=== PATIENT | male | born 1955 | race Caucasian/White ===

== ENCOUNTER 2017-11-06 15:03 | Emergency (ER) | payer BC, SELFPAY ==
[2017-11-06 15:04] VITALS: BP 153/112; PULSE 72; RESP 22; TEMP 36.4; O2SAT 100; BMI 22.2
--- NOTE | 2017-11-06 15:16 | CT_ITS ---
STUDY: CT ABDOMEN AND PELVIS WITHOUT CONTRAST REASON FOR EXAM: Male, 61 years old. Left lower quadrant pain, diaphoretic and hematuria. RADIATION DOSAGE (If Supplied By Facility): CTDIvol = ( 6.52 ) mGy, DLP = ( 293.36 ) mGycm TECHNIQUE: Transaxial images were obtained from the dome of the diaphragm to the symphysis pubis with oral contrast, and without intravenous contrast. Sagittal and coronal images were reconstructed. Individualized dose optimization techniques were used for this CT. COMPARISON: None. FINDINGS: The visualized lung bases are unremarkable. The visualized portions of the heart are within normal limits. Normal liver. Normal gallbladder and extrahepatic biliary system. Normal spleen. Normal pancreas. Normal bilateral adrenal glands. Normal right kidney. Mild hydronephrosis of the left kidney and a dilated ureter with a 3 mm stone at the left ureterovesicular junction. No additional left renal stones. Normal visualized stomach. Normal small intestine. Normal colon. The appendix is visualized and appears normal. Minimal calcified plaque of the aorta. Normal inferior vena cava. Normal retroperitoneum. Distended urinary bladder. Minimal fatty inguinal hernias. Normal osseous structures. CT/Abdomen/Pelvis without Cont IMPRESSION: Mild hydronephrosis of the left kidney and a dilated ureter secondary to a 3 mm stone at the left ureterovesicular junction. No additional left renal stones. Normal right kidney without hydronephrosis or stones. Distended urinary bladder. No additional acute abdominal or pelvic findings. Electronically Signed: Negar Mitchell MD at 16:35 EST , Service support ,
--- NOTE | 2017-11-06 15:25 | ED.VISSUMM ---
- ER Visit Summary Date of Service: 11/06/17 Chief Complaint: Abdominal pain History of Present Illness: The patient is a 61 M who states that this morning he began to have an onset of left lower quadrant abdominal pain. He states that it feels like a really bad punched to the stomach. It is nonradiating. No vomiting. He had a small bowel movement this morning without blood. He denies any urinary symptoms. No history of kidney stones. He had a colonoscopy 2 years ago which she states was fine. He denies history of diverticulosis. Surgical history includes brain tumor resection. He is on antiepileptic drugs. No fevers. He has never had this pain before. Physical Examination: Afebrile vital signs are stable. Noted hypertension at 153/112 in triage. Gen: Well-nourished well-developed patient appears in pain Head: Normocephalic atraumatic Eyes: Perrl EOMI ENT: TMs clear no rhinorrhea moist mucous membranes Neck: Supple no lymphadenopathy no JVD nontender CVS: Regular rate rhythm no murmurs normal S1-S2 Respiratory: No distress clear to auscultation bilaterally chest nontender Abdomen: Abdomen is firm with guarding rebound and tenderness to palpation in the left lower quadrant. Nondistended normal bowel sounds no masses Back: Nontender Extremity: Nontender no edema Skin: Normal color no rash Neuro: alert orientated ?3 CN II-XII intact normal strength sensation reflexes gait cerebellar Psych: Normal affect normal mood Test Results: CBC showed a white count 13.6. Chemistries with a creatinine 1.16. Urinalysis showed 10-25 red blood cells. Lactic acid 2.9. CT without contrast demonstrates a 3 mm distal ureteral stone with mild hydronephroureter. Emergency Department Course and Treatment: IV was established and the patient received IV fluids, Dilaudid, and Zofran. I believe the patient's symptoms are related to this distal ureteral stone. His lactic acid is elevated I believe because he has been holding himself for several hours extremely tense and shaking. Lactic acid is most likely a muscle byproduct from this. He is overall improved. He will be discharged home with follow-up with his doctor return if worsening. Impression: 1. Left kidney stone with colic This note was generated with [employer] software. It may contain incorrect words, spelling, and punctuation that were not noted in review of the chart prior to signing ED Disposition - Plan for ED Patient: Disposition: Home or Assisted Living Chief Complaint: Abd Pain Instructions: ED Stone Renal W Colic Prescriptions: Oxycodone [Oxyir] 5 mg PO Q4H PRN PRN 4 Days #20 tab PRN Reason: Pain Ondansetron [Zofran Odt] 4 mg PO Q8H PRN PRN #10 tab PRN Reason: Nausea Ibuprofen [Motrin] 800 mg PO TID PRN PRN #20 tab PRN Reason: Pain Tamsulosin HCl [Flomax] 0.4 mg PO DAILY 7 Days cap Referrals: Marisol Redman MD [Primary Care Provider] - 1 Week
[2017-11-06 15:34] LABS: Mucous, Urine 0 SEEN /hpf (<or=2+); White Blood Cells 0 SEEN /hpf (0-5)
[2017-11-06 15:36] LABS: Absolute Lymphocyte Count 0.88 X10^3/ul (0.83-4.51); Absolute Neutrophil Count 12.2 X10^3/uL (2.0-7.7); Basophil# 0.06 X10^3/uL; Basophil% 0.4 % (0-1); Color, Urine Yellow (Yellow); Eosinophil# 0.02 X10^3/uL; Eosinophils% 0.1 % (0-5); Glucose, Dipstick Normal (Normal); Hematocrit 45.6 % (40-54); Hemoglobin 16.1 g/dl (13.0-16.5); Ketone-Dipstick Negative (Negative); Leukocyte Esterase-Dipstick Negative /ul (Negative); Lymphocyte # 0.88 X10^3/ul (4.0); Lymphocyte % 6.5 % (19-41); Mean Corp Hgb Conc 35.3 g/gl (32-36); Mean Corpuscular Hgb 32.5 pg (27.0-32.0); Mean Corpuscular Volume 91.9 fL (80-94); Mean Platelet Vol. 10.5 fl (6.2-12.0); Monocyte# 0.47 X10^3/uL; Monocyte% 3.5 % (0-10); Neutrophil # 12.15 X10^3/uL (2.7-7.7); Neutrophil % 89.2 % (47-70); Nitrite-Dipstick Negative (Negative); Occult Blood-Urine 150 /ul (Negative); Platelet Count 220 K/mm3 (150-450); Protein-Dipstick 15 mg/dl (Negative); RBC Distribution Width CV 12.3 % (11.6-14.6); Red Blood Count 4.96 M/mm3 (4.6-6.2); Specific Gravity, Urine 1.025 (1.002-1.030); Urine Bilirubin Dipstick Negative (Negative); Urine Clarity Clear (Clear); Urine Urobilinogen Normal (Normal); White Blood Count 13.6 K/mm3 (4.4-11.0)
[2017-11-06 15:37] LABS: POSITIVE COUNT NO; POSITIVE DIFFERENTIAL NO; POSITIVE MORPHOLOGY NO
[2017-11-06] MEDS: HYDROmorphone 1 MG/ML Syringe IV (15:39)
[2017-11-06] MEDS: Ondansetron 4 MG/2 ML Vial IV (15:39)
[2017-11-06] MEDS: 0.9% Normal Saline 1,000 ML 125 ML IV (15:39)
[2017-11-06 15:53] LABS: ALB/GLOB Ratio 1.3 RATIO (0.9-2.4); AST(SGOT) 28 U/L (15-37); Alanine Aminotransfer ALT/SGPT 22 U/L (16-61); Albumin, Serum 4.3 g/dL (3.2-5.0); Alkaline Phosphatase 81 U/L (45-117); Anion Gap 9 (5-15); BUN 15 mg/dL (7-18); BUN/Creat Ratio 12.9 RATIO (10-20); Calcium,Total 9.3 mg/dL (8.5-10.1); Chloride 106 mmol/L (98-107); Creatinine, Serum 1.16 mg/dL (0.70-1.30); EST Glomerular Filtration Rate 68 mL/min (>60); Est Glom Filt Rate - Afr Amer 82 mL/min (>60); Estimated Creatinine Clearance 67.43 ml/min; Globulin 3.4 g/dL (2.2-4.2); Glucose 140 mg/dL (74-106); Lipase 155 U/L (73-393); Potassium 3.7 mmol/L (3.5-5.1); Protein, Total 7.7 g/dL (6.4-8.2); Sodium Level 142 mmol/L (136-145)
[2017-11-06 16:03] LABS: Red Blood Cells-Urine 10-25 SEEN /hpf (0-5)
[2017-11-06 16:04] LABS: Bacteria RARE /hpf (None Seen); Squamous Epithelial Cells - UA 0-5 SEEN /hpf (0-5)
[2017-11-06] MEDS: LORazepam 2 MG/ML Syringe 1 MG IV (16:10)
--- NOTE | 2017-11-06 16:26 | ED.RN ---
LAB RESULTED LACTIC 2.6, PHYSICIAN NOTIFIED
--- NOTE | 2017-11-06 16:26 | ED.RN ---
CRITICAL LAB OF LACTIC OF 2.6. NOTIFIED.
[2017-11-06] MEDS: 0.9% Normal Saline 1,000 ML 999 ML IV (16:30)
[2017-11-06 16:34] LABS: Lactic Acid 2.9 mmol/L (0.4-2.0)
[2017-11-06] MEDS: Ketorolac 30 MG/ML Syringe IV (16:54)
[2017-11-06 17:36] VITALS: BMI 22.3
[2017-11-06 18:16] VITALS: BP 120/70; PULSE 57; RESP 14; O2SAT 99
--- NOTE | 2017-11-06 18:41 | ED.RN ---
183-Verbal and written d/c instructions given. All questions answered. Skin w/d. ABCs intact. Gait steady out of department.
[2017-11-06 19:41] LABS: Reflex Lactate? Y
== END 2017-11-06 18:42 | disposition home or self-care (01) ==
PROVIDERS: Emergency Provider Emergency Medicine; Family Provider Family Medicine; PCP Family Medicine
DX: N13.2 Hydronephrosis with renal and ureteral calculous obstruction (principal); I10 Essential (primary) hypertension; R74.0 Nonspecific elevation of levels of transaminase and lactic acid dehydrogenase [LDH]; R56.9 Unspecified convulsions; Z79.899 Other long term (current) drug therapy; Z86.011 Personal history of benign neoplasm of the brain
CPT/HCPCS: 74176; 80053; 81001; 83605; 83690; 85025; 96361; 96374; 96375; 99283; J7030; A4216; J2405

== ENCOUNTER → 2017-11-10 16:46 | Outpatient (CLI) | payer BC, SELFPAY ==
[2016-05-01 11:43] VITALS: BP 132/84
[2017-11-06 15:04] VITALS: BMI 22.2
[2017-11-06 18:16] VITALS: BP 120/70
== END ==
PROVIDERS: Family Provider Family Medicine; PCP Family Medicine; Visit Provider Family Medicine
DX: N20.0 Calculus of kidney (principal)
CPT/HCPCS: 82360

== ENCOUNTER → 2024-05-30 | Outpatient (CLI) | payer MEDICARE, SELFPAY ==
[2024-05-30 11:21] LABS: PSA,Total - Annual Screen 2.86 ng/mL (0.00-4.00)
== END | disposition home or self-care (01) ==
PROVIDERS: PCP Family Medicine; Referring Provider Family Medicine; Visit Provider Family Medicine
DX: Z12.5 Encounter for screening for malignant neoplasm of prostate (principal)
CPT/HCPCS: 36415; 84153; G0103

== ENCOUNTER 2024-06-24 16:20 | Observation (INO) | payer MEDICARE, SELFPAY ==
[2024-06-24] VITALS (7 sets, daily range): BP systolic 139–160; BP diastolic 80–90; PULSE 41–44; RESP 14–20; TEMP 36.2–36.9; O2SAT 97–100; BMI 23.1; BMI 22.4
--- NOTE | 2024-06-24 17:04 | EKG12_ITS ---
Test Reason : NEURO S/SX Blood Pressure : / mmHG Vent. Rate : 045 BPM Atrial Rate : 045 BPM P-R Int : 184 ms QRS Dur : 088 ms QT Int : 448 ms P-R-T Axes : 064 -69 004 degrees QTc Int : 387 ms Sinus bradycardia Left axis deviation Abnormal ECG Confirmed by Javi Kapadia ([id number]), editor at large BENJI ANGEL ([id number]) on 06/27/2024 10:49:10 AM Referred By: Confirmed By:Javi Kapadia
[2024-06-24 17:08] LABS: Bedside Glucose 86 mg/dL (74-106)
--- NOTE | 2024-06-24 17:18 | ED.VIS.STROK ---
HPI History of Present Illness Chief Complaint: Neuro S/Sx Informant: patient and spouse/S.O. Narrative Narrative: Patient is a 68-year-old male presenting from home with abnormal outpatient CT. Patient is with his . Reportedly patient has had some behavior changes since Thursday (6 days ago). Followed up with primary care doctor who ordered an outpatient CT of the brain with and without contrast. Patient does have a history of seizures such as in 15 and he is on Keppra and Vimpat. Does have a history of a meningioma that was surgically resected. He said seizure since the surgery. Patient describes his symptoms more like not acting himself or feeling foggy. He has a hard time answering some questions but when asked if he is having a hard time finding the words he says no. Patient denies any vision changes, numbness or tingling, stumbling or dropping things. He denies associated nausea, vomiting, chest pain, shortness of breath or abdominal pain. Denies any GI or symptoms. Denies a history of stroke. Denies any known history of hypertension, hyperlipidemia or diabetes. Does have a family history of diabetes. Outpatient CT was concerning for subacute infarct and patient was into the emergency room for further evaluation. [facility] Home Medications ?Medication ?Instructions ?Recorded ?Last Taken ?Type ibuprofen 800 mg tablet 800 mg PO TID PRN Pain 06/24/24 Unknown History lacosamide 150 mg tablet 150 mg PO BID 06/24/24 06/24/24 History levetiracetam 750 mg 750 mg PO BID 06/24/24 06/24/24 History tablet,extended release 24 hr Allergy/AdvReac Type Severity Reaction Status Date / Time No Known Allergies Allergy Verified 06/24/24 16:20 Family History no significant family his Surgical History no surgical history Social History Smoking Status: Never smoker ROS ROS ED Constitutional Constitutional ED: Denies chills or fever(s) Eyes Eyes: Denies blurry vision or change in vision Cardiovascular Cardiovascular: Denies chest pain Respiratory/Chest Respiratory/Chest: Denies cough or dyspnea Gastrointestinal Gastrointestinal: Denies abdominal pain, nausea or vomiting Musculoskeletal Musculoskeletal: Denies arthralgias or myalgias Neurologic Neurologic: Reports other Details: mental status change ; Denies headache(s), paresthesias or weakness Psychiatric Psychiatric: Denies anxiety or depression Hematologic/Lymphatic Hematologic/Lymphatic: Denies easy bleeding or easy bruising EXAM Physical Exam Const Vital Signs: 06/24/24 16:20 06/24/24 17:20 06/24/24 18:00 Temperature 97.2 F L Temperature Source Temporal Pulse Rate 44 L 43 L 42 L Respiratory Rate 20 H 16 14 Blood Pressure 149/87 H 154/80 H 144/84 H Blood Pressure Mean 107 104 104 Pulse Ox 100 98 98 Oxygen Delivery Method Room Air Room Air Room Air Positive well nourished and well developed General Appearance ED: well developed and NAD HEENT Reports moist mucous membranes atraumatic Eyes PERRL and EOMs intact bilaterally Neck supple Chest Wall inspection of chest normal and palpation of chest normal Resp normal respiratory effort and clear to auscultation bilaterally Cardio no murmurs GI normal to inspection, nondistended, normoactive bowel sounds, soft to palpation and non-tender Extremity normal to inspection General Extremety ED: Negative for deformity or edema General Extremity: Negative for deformity or edema Neuro CN's II-XII intact bilaterally and no sensory deficits noted Neuro Narrative: NIH equals 0. At sometimes patient is a hard time answering questions especially when I ask him to describe his symptoms but he can answer other questions such as he is able to tell me that he had tumor the size of a walnut removed from his brain. He does not have any slurred speech. Cranial nerves II through XII intact. No facial droop appreciated. Does have a mild asymmetry of the eyes but this is chronic and just physiologic for the patient. Sensorium / Orientation: alert, oriented to person, oriented to place and oriented to time Speech: speech normal Motor Exam: strength 5/5 throughout; Negative for general weakness Psych mental status grossly normal Skin no wounds NIHSS NIHSS Initial: 1a Level of Consciousness: 0 1b LOC Questions (Score 2 if aphasic/stupor): 0 1c LOC Commands (Only score 1st attempt): 0 2 Best Gaze (If aphasic, use reflexive mvmts.): 0 3 Visual: 0 4 Facial Palsy: 0 5 Motor Arm Right (UN = amputation/fusion): 0 5 Motor Arm Left: 0 6 Motor Leg Right: 0 6 Motor Leg Left: 0 7 Limb ataxia (Only + if out of proportion): 0 8 Sensory (Aphasia/stupor=0 or 1, coma=2): 0 9 Best Language: 0 10 Dysarthria (mute, coma=2, intubated=UN): 0 11 Extinction and Inattention (only scored if +): 0 Total Score: 0 MDM MDM MDM Narrative Medical decision making narrative: Patient is evaluated for behavior change and had up outpatient CT of the brain which showed new low-attenuation focus in the left basal ganglia concerning for subacute infarct. He also has a postsurgical right frontal lobe encephalomalacia. Patient does have a history consistent with this. Will obtain other stroke labs. Patient received IV contrast today we will hold off on the CTA at this time. Will discuss with hospitalist for admission and further workup for MRI and looking for cause of the less likely stroke. Patient and agreeable this plan of care. Case discussed with admit physician Dr. Moreno. Will admit for further stroke evaluation. Of note patient is bradycardic while in the emergency room. He is asymptomatic with it. It is sinus bradycardia. Will continue to monitor. Lab Data Attestation: I reviewed the patient's lab results. Labs: Laboratory Results - last 24 hr 06/24/24 06/24/24 06/24/24 14:40 16:48 18:25 WBC 8.6 RBC 4.81 Hgb 15.5 Hct 45.2 MCV 94.0 MCH 32.2 H MCHC 34.3 RDW Std Deviation 42.3 RDW Coeff of Dom 12.1 Plt Count 229 MPV 10.9 Immature Gran % (Auto) 0.500 Neut % (Auto) 70.4 H Lymph % (Auto) 20.2 [place] % (Auto) 7.3 Eos % (Auto) 0.8 Baso % (Auto) 0.8 Absolute Neuts (auto) 6.0 Absolute Lymphs (auto) 1.73 Nucleated RBC % 0 PT 14.7 INR 1.2 APTT 29.4 Sodium 139 Potassium 3.7 Chloride 105 Carbon Dioxide 30.0 Anion Gap 4 L BUN 20 H Creatinine 1.30 Estim Creat Clear Calc 56.93 Est GFR (MDRD) Af Amer 71 Est GFR (MDRD) Non-Af 58 L BUN/Creatinine Ratio 15.4 Glucose 101 Calcium 9.5 Total Bilirubin 0.60 AST 27 ALT 22 Alkaline Phosphatase 72 Total Protein 7.7 Albumin 4.1 Globulin 3.6 Albumin/Globulin Ratio 1.1 Urine Color Yellow Urine Clarity Cloudy Urine pH 6.0 Ur Specific [place] 1.020 Urine Protein 30 H Urine Glucose (UA) Normal Urine Ketones 5 H Urine Occult Blood Negative Urine Nitrite Negative Urine Bilirubin Negative Urine Urobilinogen Normal Ur Leukocyte Esterase 100 H Urine RBC 0 SEEN Urine WBC 5-10 SEEN Ur Squamous Epith Cells 0 SEEN Triple Phos Crystals 4+ Urine Bacteria 2+ Hyaline Casts 0-5 SEEN Urine Mucus 1+ Urine Opiates Screen NEGATIVE Urine Methadone Screen NEGATIVE Ur Barbiturates Screen NEGATIVE Ur Phencyclidine Scrn NEGATIVE Ur Amphetamines Screen NEGATIVE MDMA (Ecstasy) Screen NEGATIVE U Benzodiazepines Scrn NEGATIVE Urine Cocaine Screen NEGATIVE U Cannabinoids Screen NEGATIVE Ur Drug Screen Comment POC Glucose 86 Rhythm Strip Rhythm Strip: Sinus Rhythm Rate: 45 Ectopy: None EKG Initial EKG: Attestation: I personally reviewed and interpreted this EKG as follows: Comments: Sinus bradycardia rate of 45 bpm Left axis deviation Normal intervals Normal ST segments Discharge Plan Dx/Rx/DC Orders Clinical Impression: Ischemic cerebrovascular accident (CVA) Disposition Disposition: Acute Care Hospital [facility] Discharge Date/Time: 06/24/24 19:02
[2024-06-24 17:26] LABS: Absolute Lymphocyte Count 1.73 X10^3/uL (0.83-4.51); Basophil# 0.07 X10^3/uL; Basophil% 0.8 % (0-1); Eosinophil# 0.07 X10^3/uL; Eosinophils% 0.8 % (0-5); Hematocrit 45.2 % (40-54); Hemoglobin 15.5 g/dL (13.0-16.5); Lymphocyte # 1.73 X10^3/ul (0.83-4.51); Lymphocyte % 20.2 % (19-41); Mean Corp Hgb Conc 34.3 g/dL (32-36); Mean Corpuscular Hgb 32.2 pg (27.0-32.0); Mean Platelet Vol. 10.9 fl (6.2-12.0); Monocyte# 0.63 X10^3/uL; Monocyte% 7.3 % (0-10); NRBC Flagged by Analyzer 0 % (0-5); Neutrophil # 6.04 X10^3/uL (2.7-7.7); Neutrophil % 70.4 % (47-70); Platelet Count 229 K/mm3 (150-450); RBC Distribution Width CV 12.1 % (11.6-14.6); RBC Distribution Width SD 42.3 fl (35.1-43.9); Red Blood Count 4.81 M/mm3 (4.6-6.2); White Blood Count 8.6 K/mm3 (4.4-11.0)
[2024-06-24 17:35] LABS: International Normalized Ratio 1.2; Partial Thromboplast Time 29.4 Seconds (24.1-36.2); Prothrombin Time (Protime)PT. 14.7 SECONDS (11.7-14.9)
[2024-06-24 17:46] LABS: ALB/GLOB Ratio 1.1 RATIO (0.9-2.4); AST(SGOT) 27 U/L (15-37); Alanine Aminotransfer ALT/SGPT 22 U/L (16-61); Albumin, Serum 4.1 g/dL (3.2-5.0); Alkaline Phosphatase 72 U/L (45-117); Anion Gap 4 (5-15); BUN 20 mg/dL (7-18); BUN/Creat Ratio 15.4 RATIO (10-20); Calcium,Total 9.5 mg/dL (8.5-10.1); Chloride 105 mmol/L (98-107); EST Glomerular Filtration Rate 58 mL/min (>60); Est Glom Filt Rate - Afr Amer 71 mL/min (>60); Estimated Creatinine Clearance 56.93 ml/min; Globulin 3.6 g/dL (2.2-4.2); Glucose 101 mg/dL (74-106); Potassium 3.7 mmol/L (3.5-5.1); Protein, Total 7.7 g/dL (6.4-8.2); Sodium Level 139 mmol/L (136-145)
[2024-06-24 18:33] LABS: Red Blood Cells-Urine 0 SEEN /hpf (0-5); Squamous Epithelial Cells - UA 0 SEEN /hpf (0-5)
--- NOTE | 2024-06-24 18:39 | HP.PCM.HOS_ITS ---
HPI - General General Date of Admission: 06/24/24 Date of Service: 06/24/24 Chief Complaint: Word finding difficulty, personality changes HPI Narrative CADE PRECIADO, is a 68 M with a history of meningioma status post removal and seizure disorder on antiepileptics who presented to [facility] ED at the urging of his primary care physician due to suspected subacute stroke found on CT. Hospitalist contacted for admission to expedite further workup. Patient has had roughly 6 days of being off with some word finding difficulty, indecisiveness, and just not feeling/acting like himself that was noticed by multiple family members. Has been roughly the same throughout the week with no notable improvement or worsening. Patient had CT ordered by PCP and it demonstrated a new low-attenuation focus within the left basal ganglia concerning for subacute infarct and recommended MRI for further evaluation. Patient denies any fevers or chills, no numbness, weakness, tingling. Does feel like swallowing has maybe been a little bit different for him but he has been able to swallow, just feels different from baseline but cannot describe that further. No slurred speech or changes in vision. ROS otherwise negative [facility] Home Medications ?Medication ?Instructions ?Recorded ?Last Taken ?Type ibuprofen 800 mg tablet 800 mg PO TID PRN Pain 06/24/24 Unknown History lacosamide 150 mg tablet 150 mg PO BID 06/24/24 06/24/24 History levetiracetam 750 mg 750 mg PO BID 06/24/24 06/24/24 History tablet,extended release 24 hr Allergy/AdvReac Type Severity Reaction Status Date / Time No Known Allergies Allergy Verified 06/24/24 16:20 Family History no significant family his Surgical History no surgical history Social History Smoking Status: Never smoker ROS ROS Narrative General: Denies fever/chills HENT: Denies headache, denies stuffy nose, denies sore throat EYES: Denies changes in vision Resp: Denies cough, denies shortness of breath Cardiac: Denies chest pain GI: Denies abdominal pain, denies changes in bowel, denies nausea/vomiting : Denies changes in urination Extremity: Denies swelling MSK: Denies weakness Neuro: Denies any numbness/tingling, has had some fatigue with word finding difficulty and indecisiveness Heme: Denies any bleeding or bruising Skin: Denies rashes Psychiatric: No complaints voiced Vital Signs Vital Signs Vital Signs: 06/24/24 16:20 06/24/24 17:20 06/24/24 18:00 Temperature 97.2 F L Temperature Source Temporal Pulse Rate 44 L 43 L 42 L Respiratory Rate 20 H 16 14 Blood Pressure 149/87 H 154/80 H 144/84 H Blood Pressure Mean 107 104 104 Pulse Ox 100 98 98 Oxygen Delivery Method Room Air Room Air Room Air Weight Weight: 73.3 kg Body Mass Index (BMI) 23.1 Physical Exam Narrative General: Alert, oriented, no apparent distress HEENT: Atraumatic, normocephalic Eyes: Anicteric, normal conjunctiva, extraocular movements intact, pupils equal Neck: Supple Respiratory: Clear to auscultation bilaterally, normal respiratory effort Cardiovascular: Regular rate and rhythm GI: Soft, nontender, nondistended Extremities: No edema Musculoskeletal: Strength 5 out of 5 in right upper extremity, 5 out of 5 left upper extremity, 5 out of 5 right lower extremity, 5 out of 5 left lower extremity Neuro: No overt focal neurological deficits, cranial nerves II through XII intact, [id number] without significant difficulty bilaterally but initially patient seemed to have difficulty understanding task but ultimately was able to do without difficulty Skin: No rashes appreciated Psych: Cooperative Results Lab / Micro Data 06/24/24 14:40 06/24/24 14:40 Labs: Laboratory Results - last 24 hr 06/24/24 14:40: WBC 8.6, RBC 4.81, Hgb 15.5, Hct 45.2, MCV 94.0, MCH 32.2 H, MCHC 34.3, RDW Std Deviation 42.3, RDW Coeff of Dom 12.1, Plt Count 229, MPV 10.9, Immature Gran % (Auto) 0.500, Neut % (Auto) 70.4 H, Lymph % (Auto) 20.2, [place] % (Auto) 7.3, Eos % (Auto) 0.8, Baso % (Auto) 0.8, Absolute Neuts (auto) 6.0, Absolute Lymphs (auto) 1.73, Nucleated RBC % 0, PT 14.7, INR 1.2, APTT 29.4, Sodium 139, Potassium 3.7, Chloride 105, Carbon Dioxide 30.0, Anion Gap 4 L, BUN 20 H, Creatinine 1.30, Estim Creat Clear Calc 56.93, Est GFR (MDRD) Af Amer 71, Est GFR (MDRD) Non-Af 58 L, BUN/Creatinine Ratio 15.4, Glucose 101, Calcium 9.5, Total Bilirubin 0.60, AST 27, ALT 22, Alkaline Phosphatase 72, Total Protein 7.7, Albumin 4.1, Globulin 3.6, Albumin/Globulin Ratio 1.1 06/24/24 16:48: POC Glucose 86 06/24/24 18:25: Ur Drug Screen Comment Rhythm Strip Rhythm Strip: Sinus Rhythm Rate: 45 Ectopy: None Assessment & Plan Assessment/Plan (1) Ischemic cerebrovascular accident (CVA): PLAN: Plan # Word finding difficulty and indecisiveness with concern for possible subacute infarct -Admit to tele -CT head obtained earlier today through PCP showed new low-attenuation focus within the left basal ganglia concerning for subcu infarct and recommended an MRI for further evaluation -CTA head and neck ordered, patient received contrast already today so this will likely be done tomorrow and given subacute nature do not think this needs to be done stat, IV fluids ordered -MRI ordered -NIH q4hr -asa, Plavix, statin -Echo w/ bubble study -PT/OT/Speech eval -Teleneuro consult placed # History of seizure disorder -No recent seizure activity -Feel #1 likely cause of patient's symptoms -Teleneuro is consulted -Continue home antiepileptics # Sinus bradycardia -Heart rate in 40s, patient does report being a long-distance runner -Denies any syncope/presyncope or any cardiac problems, concerns, conditions -Monitoring on telemetry however no acute intervention necessary 1 suspect this is chronic #DVT ppx: Lovenox subcu Iris Moreno MD Charges/Coding Visit Charges Inpatient E&M: 61985 Init Hosp L1
--- NOTE | 2024-06-24 18:45 | ECHOD_ITS ---
Reason For Study: TIA/Stroke Procedure This was a 2D Doppler, Color Flow transthoracic echocardiogram. Exam performed portable in patient room. Left Ventricle Normal LV size. The estimated ejection fraction is 55 %. No evidence for diastolic dysfunction. No regional wall motion abnormalities noted. Right Ventricle Normal RV size. Normal systolic function. Atria The left and right atria are normal. No doppler evidence for ASD. Mitral Valve There is no mitral valve stenosis. Trivial mitral valve insufficiency. Tricuspid Valve There is no tricuspid stenosis. Trivial tricuspid valve insufficiency. Pulmonary artery systolic pressure is 30 mmHg. Aortic Valve Trisinus/trileaflet aortic valve. There is no aortic stenosis. Trivial aortic valve insufficiency. Pulmonic Valve There is no pulmonic valvular stenosis. Trivial pulmonic valve insufficiency. Great Vessels Normal aortic root. Pericardium/Pleural No pericardial effusion. MMode/2D Measurements & Calculations LVIDd: 5.2 cm IVSd: 0.92 cm Ao root diam: 3.6 cm LVIDs: 3.3 cm LVPWd: 0.97 cm RVDd: 4.0 cm FS: 36.3 % LAV(MOD-bp): 52.0 ml LVAd ap4: 27.9 cm2 SV(MOD-sp4): 54.1 ml LAV(MOD-bp) Indexed: 27.2 ml/m2 LVLd ap4: 7.4 cm LAV(MOD-sp2): 62.1 ml EDV(MOD-sp4): 87.0 ml LAV(MOD-sp4): 40.0 ml EDV(sp4-el): 88.6 ml LVAs ap4: 15.1 cm2 LVLs ap4: 5.8 cm ESV(MOD-sp4): 32.9 ml ESV(sp4-el): 33.6 ml EF(MOD-sp4): 62.2 % EF(sp4-el): 62.1 % SV(sp4-el): 55.1 ml LA A4 area: 16.3 cm2 LA dimension(2D): 3.0 cm RA A4 area: 18.9 cm2 TAPSE: 3.3 cm Time Measurements MV dec time: 0.23 sec Doppler Measurements & Calculations MV E max vinicio: 63.7 cm/sec Lat Peak E' Viincio: 10.1 cm/sec Med Peak E' Vinicio: 9.2 cm/sec MV A max vinicio: 52.0 cm/sec E/E' lat: 6.3 E/E' med: 6.9 MV E/A: 1.2 Ao V2 max: 134.3 cm/sec LV V1 max: 103.7 cm/sec MV dec slope: 283.6 cm/sec2 Ao max P.2 mmHg LV V1 max P.3 mmHg Ao V2 mean: 90.0 cm/sec LV V1 mean P.3 mmHg Ao mean P.8 mmHg LV V1 mean: 70.8 cm/sec Ao V2 VTI: 34.4 cm LV V1 VTI: 26.8 cm AV (velocity ratio): 0.78 PA V2 max: 95.3 cm/sec PI end-d vinicio: 91.3 cm/sec TR max vinicio: 248.9 cm/sec TR max P.8 mmHg ECHO/Echo Complete Interpretation Summary The estimated ejection fraction is 55 %. No evidence for diastolic dysfunction. Trivial mitral valve insufficiency. Trivial aortic valve insufficiency. Ordering Physician: Iris Moreno Referring Physician: Marisol Redman Performed By: Ene Sahni, MILAG[place], RVT
[2024-06-24 18:54] LABS: Color, Urine Yellow (Yellow); Glucose, Dipstick Normal (Normal); Ketone-Dipstick 5 mg/dl (Negative); Leukocyte Esterase-Dipstick 100 /ul (Negative); Nitrite-Dipstick Negative (Negative); Occult Blood-Urine Negative /ul (Negative); Protein-Dipstick 30 mg/dl (Negative); Urine Bilirubin Dipstick Negative (Negative); Urine Clarity Cloudy (Clear); Urine Urobilinogen Normal (Normal)
--- NOTE | 2024-06-24 18:59 | ED.RN ---
PT TOOK HOME MEDICATION, DR. HARLEY [place].
[2024-06-24 19:01] LABS: Bacteria 2+ /hpf (None Seen); Hyaline Cast 0-5 SEEN /lpf (0-5); Mucous, Urine 1+ /hpf (<or=2+); Triple Phosphate Crystals Ur 4+ /hpf (<or=1+); White Blood Cells 5-10 SEEN /hpf (0-5)
[2024-06-24 19:16] LABS: Amphetamine Urine VISTA NEGATIVE (<1000 ng/mL); Barbiturate Urine VISTA NEGATIVE (< 200 ng/mL); Benzodiazepine Urine VISTA NEGATIVE (< 200 ng/mL); Cocaine Urine VISTA NEGATIVE (< 300 ng/mL); Ecstacy Urine VISTA NEGATIVE (< 500 ng/mL); Methadone Urine VISTA NEGATIVE (< 300 ng/mL); PCP Urine VISTA NEGATIVE (< 25 ng/mL); THC Urine VISTA NEGATIVE (< 50 ng/mL); Vista UDS pH Range 4
[2024-06-24] MEDS: 0.9% Normal Saline (1000mL) 1,000 ML 50 ML IV (20:12)
[2024-06-24] MEDS: Atorvastatin Calcium 80 MG Tablet PO (20:12)
[2024-06-24] MEDS: Aspirin 81 MG TAB.CHEW PO (20:12)
[2024-06-24] MEDS: Clopidogrel Bisulfate 75 MG Tablet PO (20:23)
[2024-06-25] VITALS (8 sets, daily range): BP systolic 117–131; BP diastolic 70–100; PULSE 41–47; RESP 16–18; TEMP 36.2–36.9; O2SAT 96–98; BMI 22.4
[2024-06-25 05:23] LABS: Absolute Lymphocyte Count 1.96 X10^3/uL (0.83-4.51); Absolute Neutrophil Count 4.1 X10^3/uL (2.0-7.7); Basophil# 0.08 X10^3/uL; Basophil% 1.2 % (0-1); Eosinophil# 0.11 X10^3/uL; Eosinophils% 1.6 % (0-5); Hematocrit 43.9 % (40-54); Hemoglobin 14.9 g/dL (13.0-16.5); Lymphocyte # 1.96 X10^3/ul (0.83-4.51); Lymphocyte % 28.6 % (19-41); Mean Corp Hgb Conc 33.9 g/dL (32-36); Mean Corpuscular Hgb 32.2 pg (27.0-32.0); Mean Corpuscular Volume 94.8 fL (80-94); Monocyte# 0.57 X10^3/uL; Monocyte% 8.3 % (0-10); NRBC Flagged by Analyzer 0 % (0-5); Neutrophil % 59.9 % (47-70); Platelet Count 201 K/mm3 (150-450); RBC Distribution Width CV 12.1 % (11.6-14.6); RBC Distribution Width SD 42.1 fl (35.1-43.9); Red Blood Count 4.63 M/mm3 (4.6-6.2); White Blood Count 6.9 K/mm3 (4.4-11.0)
[2024-06-25 06:01] LABS: Anion Gap 4 (5-15); BUN 17 mg/dL (7-18); BUN/Creat Ratio 14.4 RATIO (10-20); Calcium,Total 9.2 mg/dL (8.5-10.1); Chloride 108 mmol/L (98-107); Cholesterol 174 mg/dL (200); Creatinine, Serum 1.18 mg/dL (0.70-1.30); EST Glomerular Filtration Rate 65 mL/min (>60); Est Glom Filt Rate - Afr Amer 79 mL/min (>60); Estimated Creatinine Clearance 61.09 ml/min; Glucose 90 mg/dL (74-106); High Density Lipoprotein 52 mg/dL; Magnesium 2.5 mg/dL (1.6-2.6); Potassium 3.9 mmol/L (3.5-5.1); Sodium Level 141 mmol/L (136-145); Triglycerides 76 mg/dL; Very Low Density Lipoprotein 15 mg/dL (5-40)
--- NOTE | 2024-06-25 08:00 | CT_ITS ---
We are attempting to reach an attending provider to discuss findings. An addendum with communication details will be sent when the communication is complete. STUDY: CTA HEAD AND NECK WITH CONTRAST REASON FOR EXAM: Male, 68 years old. Increasing confusion, neuro deficit, subacute cva RADIATION DOSAGE (If Supplied By Facility): CTDIvol = ( 33.37 ) mGy, DLP = ( 1576.87 ) mGycm TECHNIQUE: CT angiography was performed with a multi-detector CT scanner. Data acquisition was obtained from the skull base through the vertex following intravenous administration of IV 100mL Isovue-370. MIP images were reconstructed from the axial data set. Post-processing of the angiographic images was performed, with multiplanar reformation and 3D reconstruction. Individualized dose optimization techniques were used for this CT. The protocol utilizes one or more of the following dose reduction techniques: automated exposure control, adjustment of mA and/or kV according to patient size, and/or use of iterative reconstruction technique. COMPARISON: MRA head and neck 04/23/2016. FINDINGS: Normal bilateral petrous carotid arteries. Normal right cavernous carotid artery with a normal supraclinoid bifurcation. Normal left cavernous carotid artery with a normal supraclinoid bifurcation. Normal right A1 segment of the anterior cerebral artery. Normal left A1 segment of the anterior cerebral artery. Normal intact anterior communicating artery (ACOM). Normal bilateral A2 segments of the anterior cerebral arteries. Normal right M1 and M2 segments of the middle cerebral arteries, with a normal M1 bifurcation. Normal left M1 and M2 segments of the middle cerebral arteries, with a normal M1 bifurcation. Small but patent right posterior communicating artery (PCOM). Small but patent left posterior communicating artery (PCOM). Normal bilateral vertebral arteries. Normal basilar artery with a normal basilar bifurcation. The visualized bilateral superior cerebellar (SCA) arteries are normal. Normal bilateral P1, P2 and visualized P3 segments of the posterior cerebral arteries. There is no demonstrated aneurysm of the [place] of [place]. There is no demonstrated abnormality of the visualized brain. AORTIC ARCH: Normal visualized aortic arch. Normal origins of the brachiocephalic, left common carotid, and left subclavian arteries. RIGHT CAROTID ARTERIES: Normal right common carotid artery (CCA). Normal right carotid bulb. Normal origin of the right internal carotid (ICA) artery without a hemodynamically significant stenosis. Normal visualized cervical portion of the right internal carotid artery. Normal origin of the right external carotid artery (ECA). LEFT CAROTID ARTERIES: Normal left common carotid artery (CCA). Normal left carotid bulb. Normal origin of the left internal carotid (ICA) artery without a hemodynamically significant stenosis. Normal visualized cervical portion of the left internal carotid artery. Normal origin of the left external carotid artery (ECA). VERTEBRAL ARTERIES: Normal bilateral vertebral arteries. CT/CTA Head AND Neck W/ Contrast IMPRESSION: 1. No CTA evidence any suspicious large vessel occlusion or medium vessel occlusion of the anterior and posterior intracranial circulation. 2. Normal bilateral cervical carotids and vertebral arteries. 3. Normal aortic arch and origins of the great vessels. 4. Small benign reactive nodes in the suprahyoid neck and infrahyoid neck. 5. No CT evidence of mass or cyst in the suprahyoid neck and infrahyoid neck. 6. No significant interval change when compared to MRA head and neck of 05/01/2016. Electronically Signed: Wesley Gifford MD at 14:08 EDT ,
[2024-06-25 09:27] LABS: Hemoglobin A1c 5.5 % (3.8-5.6)
--- NOTE | 2024-06-25 10:18 | CON.PCM.NE_ITS ---
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 Patient states he feels overall okay and was barbara in by his who has concerns about his speech and abnormal imaging. Per chart review he had a week of confusion and PCP ordered a CTH which showed a large subacute subcortical ischemic stroke involving left morales radiata and basal ganglia. Given the symptoms and finding he came to the ED. A1c5.5, LDL 107. His examine is unremarkable. Presentation is secondary to ischemic stroke, will need MRI maria teresa w/wo, MRA head with contrast, MRA neck and TTE. Diagnosis: - Ischemic stroke Plan: - ASA 81 mg - Lipitor 80 - TTE - MRI brain w/wo - MRA H/N - WIll cont to follow I personally attended this patient and spent a total time of 45 minutes evaluating this patient including clinical assessment, review of chart, medical history imaging, and determining appropriate treatment and workup. 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 Patient states he feels overall okay and was barbara in by his who has concerns about his speech and abnormal imaging. Per chart review he had a week of confusion and PCP ordered a CTH which showed a large subacute subcortical ischemic stroke involving left morales radiata and basal ganglia. Given the symptoms and finding he came to the ED. A1c5.5, LDL 107. His examine is unremarkable. Presentation is secondary to ischemic stroke, will need MRI maria teresa w/wo, MRA head with contrast, MRA neck and TTE. [facility], [facility] Home Medications ?Medication ?Instructions ?Recorded ?Last Taken ?Type ibuprofen 800 mg tablet 800 mg PO TID PRN Pain 06/24/24 Unknown History lacosamide 150 mg tablet 150 mg PO BID 06/24/24 06/24/24 History levetiracetam 750 mg 750 mg PO BID 06/24/24 06/24/24 History tablet,extended release 24 hr Allergy/AdvReac Type Severity Reaction Status Date / Time No Known Allergies Allergy Verified 06/24/24 16:20 Family History no significant family his Surgical History no surgical history Social History Smoking Status: Never smoker Vital Signs Vital Signs Vital Signs: 06/24/24 16:20 06/24/24 17:20 06/24/24 18:00 Temperature 97.2 F L Temperature Source Temporal Pulse Rate 44 L 43 L 42 L Pulse Strength Respiratory Rate 20 H 16 14 Respiratory Effort Respiratory Depth Respiratory Pattern Blood Pressure 149/87 H 154/80 H 144/84 H Blood Pressure Mean 107 104 104 Blood Pressure Source Blood Pressure Position Blood Pressure Location Pulse Ox 100 98 98 Oxygen Delivery Method Room Air Room Air Room Air 06/24/24 18:49 06/24/24 19:42 06/24/24 20:00 Temperature 98.4 F 98.1 F Temperature Source Oral Pulse Rate 42 L 44 L Pulse Strength Respiratory Rate 17 16 Respiratory Effort Normal Non-Labored Respiratory Depth Normal Respiratory Pattern Normal Blood Pressure 160/90 H 156/81 H Blood Pressure Mean 113 106 Blood Pressure Source Monitor Blood Pressure Position Semi-Fowlers Blood Pressure Location Right Arm Pulse Ox 98 100 Oxygen Delivery Method Room Air Room Air 06/24/24 22:00 06/24/24 22:22 06/24/24 23:27 Temperature 98.2 F Temperature Source Oral Pulse Rate 41 L Pulse Strength Normal (2+) Respiratory Rate 18 Respiratory Effort Respiratory Depth Respiratory Pattern Blood Pressure 139/87 H Blood Pressure Mean 104 Blood Pressure Source Monitor Blood Pressure Position Semi-Fowlers Blood Pressure Location Right Arm Pulse Ox 99 97 Oxygen Delivery Method Room Air Room Air 06/25/24 02:10 06/25/24 02:15 06/25/24 06:15 Temperature 97.9 F 97.7 F L Temperature Source Oral Oral Pulse Rate 47 L 42 L Pulse Strength Respiratory Rate 16 18 Respiratory Effort Normal Non-Labored Respiratory Depth Normal Respiratory Pattern Normal Blood Pressure 123/100 H 127/90 H Blood Pressure Mean 107 102 Blood Pressure Source Monitor Monitor Blood Pressure Position Semi-Fowlers Semi-Fowlers Blood Pressure Location Left Arm Right Arm Pulse Ox 96 98 Oxygen Delivery Method Room Air Room Air Room Air 06/25/24 07:58 06/25/24 08:04 06/25/24 08:48 Temperature 97.2 F L Temperature Source Temporal Pulse Rate 41 L Pulse Strength Respiratory Rate 18 Respiratory Effort Normal Non-Labored Respiratory Depth Normal Respiratory Pattern Normal Blood Pressure 126/86 H Blood Pressure Mean 99 Blood Pressure Source Monitor Blood Pressure Position Semi-Fowlers Blood Pressure Location Right Arm Pulse Ox 98 97 Oxygen Delivery Method Room Air Room Air Room Air Weight Weight: 71.1 kg Body Mass Index (BMI) 22.4 EEG Results Procedure Details EEG Procedure Details: CADE PRECIADO is a 68 year old M with a past medical history of , who presents for evaluation of Electroencephalogram on DATE at TIME NIHSS NIHSS Nursing Documentation NIHSS Nursing Documentation: NIHSS: Ischemic Stroke/TIA Start: 06/24/24 19:10 Text: For PCU Patients: NIH and Neuro Check every 4 Status: Active hours, PRN and with change in RN caregiver. Freq: [id number] Protocol: Activity Type Activity Date Activity User E-sign Co-sign Detail Recorded Client Recorded Date Recorded By Document 06/25/24 07:58 KS desktop 06/25/24 08:45 KS 06/25/24 07:58 NIH Stroke Scale [NIHSS] A score of 0 is normal or asymptomatic . Total possible score is 42. Inpatient: RN or Physician to activate a stroke alert for onset of new stroke symptoms or with NIHSS increase >/= 3 points. Following change in neurological status, NIHSS will be performed per physician order or more frequently PRN. -1a. Level of Consciousness Alert; keenly responsive -1b. LOC Questions Answers BOTH questions correctly. -1c. LOC Commands Performs both tasks correctly . -2. Best Gaze Normal -3. Visual No visual loss -4. Facial Palsy Normal symmetrical movements -5a. Left Arm No drift; arm holds 90 (or 45 ) degrees for full 10 seconds -5b. Right Arm No drift; arm holds 90 (or 45 ) degrees for full 10 seconds -6a. Left Leg No drift; leg holds 30-degree position for full 5 seconds -6b. Right Leg No drift; leg holds 30-degree position for full 5 seconds -7. Limb Ataxia Absent -8. Sensory Normal; no sensory loss -9. Best Language No aphasia; normal -10. Dysarthria Normal -Total 0 Query Text:A score of 0 is normal or asymptomatic. Total possible score is 42 . ED: Notify Physician for NIHSS increase by > / = 3 points. Inpatient: RN or Physician to activate a stroke alert for NIHSS increase of > / = 3 points. Coma Scale [Assess] -Eye Opening Spontaneous -Motor Obeys Commands -Verbal Oriented [Total] -Coma Scale Total 15 Physical Exam Narrative Physical Exam: - General: NAD, pleasant, cooperative, well nourished, well developed - Head/Eyes: Atraumatic, normocephalic, clear cornea, normal sclera/conjunctive - Neuro: ? Mental Status: AAOX4 & following simple commands. ? Speech: Clear and fluent with good repetition, comprehension, & naming. No aphasia or dysarthria ? CN II: Visual jasso are full to confrontation. PERRL. ? CN III, IV, : EOMI, no gaze preference, no nystagmus, no ptosis ? CN V: Facial sensation is intact to light touch throughout. ? CN VII: Face is symmetric with normal eye closure and smile. ? CN VII: Hearing is grossly normal to conversational speech. ? CN IX, X: Palate elevates symmetrically and no uvula deviation ? CN XI: Head turning, and shoulder shrug are intact. ? CN XII: Tongue is midline with normal movements and no atrophy. ? Motor: Able to sustain all limbs ? Sensation: Normal to light touch bilaterally. ? Coordination: Normal FTN & HTS. No abn movements seen. Lab / Micro Data 06/25/24 05:05 06/25/24 05:05 Labs: Laboratory Results - last 24 hr 06/24/24 14:40: WBC 8.6, RBC 4.81, Hgb 15.5, Hct 45.2, MCV 94.0, MCH 32.2 H, MCHC 34.3, RDW Std Deviation 42.3, RDW Coeff of Dom 12.1, Plt Count 229, MPV 10.9, Immature Gran % (Auto) 0.500, Neut % (Auto) 70.4 H, Lymph % (Auto) 20.2, Foard % (Auto) 7.3, Eos % (Auto) 0.8, Baso % (Auto) 0.8, Absolute Neuts (auto) 6.0, Absolute Lymphs (auto) 1.73, Nucleated RBC % 0, PT 14.7, INR 1.2, APTT 29.4, Sodium 139, Potassium 3.7, Chloride 105, Carbon Dioxide 30.0, Anion Gap 4 L, BUN 20 H, Creatinine 1.30, Estim Creat Clear Calc 56.93, Est GFR (MDRD) Af Amer 71, Est GFR (MDRD) Non-Af 58 L, BUN/Creatinine Ratio 15.4, Glucose 101, Calcium 9.5, Total Bilirubin 0.60, AST 27, ALT 22, Alkaline Phosphatase 72, Total Protein 7.7, Albumin 4.1, Globulin 3.6, Albumin/Globulin Ratio 1.1 06/24/24 16:48: POC Glucose 86 06/24/24 18:25: Urine Color Yellow, Urine Clarity Cloudy, Urine pH 6.0, Ur Specific [place] 1.020, Urine Protein 30 H, Urine Glucose (UA) Normal, Urine Ketones 5 H, Urine Occult Blood Negative, Urine Nitrite Negative, Urine Bilirubin Negative, Urine Urobilinogen Normal, Ur Leukocyte Esterase 100 H, Urine RBC 0 SEEN, Urine WBC 5-10 SEEN, Ur Squamous Epith Cells 0 SEEN, Triple Phos Crystals 4+, Urine Bacteria 2+, Hyaline Casts 0-5 SEEN, Urine Mucus 1+, Urine Opiates Screen NEGATIVE, Urine Methadone Screen NEGATIVE, Ur Barbiturates Screen NEGATIVE, Ur Phencyclidine Scrn NEGATIVE, Ur Amphetamines Screen NEGATIVE, MDMA (Ecstasy) Screen NEGATIVE, U Benzodiazepines Scrn NEGATIVE, Urine Cocaine Screen NEGATIVE, U Cannabinoids Screen NEGATIVE, Ur Drug Screen Comment 06/25/24 05:05: WBC 6.9, RBC 4.63, Hgb 14.9, Hct 43.9, MCV 94.8 H, MCH 32.2 H, MCHC 33.9, RDW Std Deviation 42.1, RDW Coeff of Dom 12.1, Plt Count 201, MPV 10.0, Immature Gran % (Auto) 0.400, Neut % (Auto) 59.9, Lymph % (Auto) 28.6, Foard % (Auto) 8.3, Eos % (Auto) 1.6, Baso % (Auto) 1.2 H, Absolute Neuts (auto) 4.1, Absolute Lymphs (auto) 1.96, Nucleated RBC % 0, Sodium 141, Potassium 3.9, Chloride 108 H, Carbon Dioxide 29.0, Anion Gap 4 L, BUN 17, Creatinine 1.18, Estim Creat Clear Calc 61.09, Est GFR (MDRD) Af Amer 79, Est GFR (MDRD) Non-Af 65, BUN/Creatinine Ratio 14.4, Glucose 90, Hemoglobin A1c 5.5, Calcium 9.2, Magnesium 2.5, Triglycerides 76, Cholesterol 174, LDL Cholesterol 107, VLDL Cholesterol 15, HDL Cholesterol 52, TSH 6.320 H Rhythm Strip Rhythm Strip: Sinus Rhythm Rate: 45 Ectopy: None Active Medications Active Medications Active Medications: Current Medications Generic Name Dose Route Start Last Admin Trade Name Freq PRN Reason Stop Dose Admin Acetaminophen 650 mg 06/24/24 19:10 Acetaminophen 325 Mg Tablet PO Q6H PRN PRN Pain 1-10 Or Fever >100.7 Albuterol Sulfate 2.5 mg 06/24/24 19:10 Albuterol 2.5 Mg/3 Ml Vial.Neb. INHALATION Q2H PRN PRN SOB &/OR WHEEZING Aspirin 81 mg 06/25/24 08:00 Aspirin 81 Mg Tab.Chew PO BREAKFAST [facility] Atorvastatin Calcium 80 mg 06/24/24 22:00 06/24/24 20:12 Atorvastatin Calcium 80 Mg Tablet PO 80 mg QHS [facility] Administration Clarify Med Order 0 each 06/24/24 21:00 06/24/24 20:12 Clarify Order NOTE Not Given CLARIFY CHAN Clopidogrel Bisulfate 75 mg 06/24/24 19:10 06/24/24 20:23 Clopidogrel Bisulfate 75 Mg Tablet PO 75 mg DAILY [facility] Administration Enoxaparin Sodium 40 mg 06/25/24 10:00 Enoxaparin 40 Mg/0.4 Ml Syringe SC DAILY [facility] Hydralazine HCl 5 mg 06/24/24 19:10 Hydralazine 20 Mg/Ml Vial IV 06/25/24 19:10 Q30M PRN maintain BP parameters with HR <60 Labetalol HCl 10 - 20 mg 06/24/24 19:10 Labetalol (Prefilled) 20 Mg/4 Ml IV 06/25/24 19:10 Q10M PRN PRN maintain BP parameters with HR >/=60 Lacosamide 150 mg 06/24/24 22:00 06/24/24 20:38 Lacosamide 100 Mg Tablet PO Not Given BID CHAN Melatonin 3 mg 06/24/24 19:10 Melatonin 3 Mg Tablet PO QHS PRN PRN INSOMNIA Non-Formulary Medication 750 mg 06/24/24 22:00 Levetiracetam PO BID CHAN Ondansetron HCl 4 mg 06/24/24 19:10 Ondansetron 4 Mg/2 Ml Vial IV Q8H PRN PRN NAUSEA/VOMITING Senna/Docusate Sodium 2 tablet 06/24/24 19:10 Senna/Docusate Sodium 1 Tablet PO BID PRN PRN Constipation Sodium Chloride 10 - 40 ml 06/24/24 19:59 0.9% Saline Lock 10 Ml Syringe IV UD PRN SALINE FLUSH
--- NOTE | 2024-06-25 10:41 | MRI_ITS ---
STUDY: MRA OF THE HEAD WITHOUT CONTRAST REASON FOR EXAM: Male, 68 years old. CVA TECHNIQUE: 3-D gsdn-by-[id number] (TOF) imaging was performed with MIPs. The study was performed unenhanced. COMPARISON: CTA head 06/25/2024. FINDINGS: Normal bilateral petrous carotid arteries. Normal right cavernous carotid artery with a normal supraclinoid bifurcation. Normal left cavernous carotid artery with a normal supraclinoid bifurcation. Normal right A1 segment of the anterior cerebral artery. Normal left A1 segment of the anterior cerebral artery. Normal intact anterior communicating artery (ACOM). Normal bilateral A2 segments of the anterior cerebral arteries. Normal right M1 and M2 segments of the middle cerebral arteries, with a normal M1 bifurcation. Normal left M1 and M2 segments of the middle cerebral arteries, with a normal M1 bifurcation. Normal right posterior communicating artery (PCOM). Normal left posterior communicating artery (PCOM). Normal bilateral vertebral arteries. Normal basilar artery with a normal basilar bifurcation. The visualized bilateral superior cerebellar (SCA) arteries are normal. Normal bilateral P1, P2 and visualized P3 segments of the posterior cerebral arteries. There is no demonstrated aneurysm of the [place] of [place]. There is no major vessel occlusion or hemodynamically significant stenosis. There is early subacute ischemic infarct in the left periventricular white matter extending to the left putamen. MRI/MRA Head ONLY without Contrast IMPRESSION: Normal MRA of the head and unchanged when compared to CTA head of 06/25/2024. COMMENT: Please see MRI brain showing prominent early subacute ischemic infarct in the left periventricular white matter extending to the left putamen. This is most likely cardioembolic in origin. Electronically Signed: Wesley Gifford MD at 14:59 EDT ,
--- NOTE | 2024-06-25 10:41 | MRI_ITS ---
STUDY: MRA NECK WITH AND WITHOUT CONTRAST REASON FOR EXAM: Male, 68 years old. CVA TECHNIQUE: 3-D [id number] (TOF) imaging was performed in an 1.5 T MRI scanner. IV 14cc Clariscan was administered for the contrast enhanced images. COMPARISON: CTA neck 06/25/2024. FINDINGS: RIGHT CAROTID ARTERIES: Normal right common carotid artery (CCA). Normal right carotid bulb. Normal origin of the right internal carotid (ICA) artery without a hemodynamically significant stenosis. Normal visualized cervical portion of the right internal carotid artery. Normal origin of the right external carotid artery (ECA). LEFT CAROTID ARTERIES: Normal left common carotid artery (CCA). Normal left carotid bulb. Normal origin of the left internal carotid (ICA) artery without a hemodynamically significant stenosis. Normal visualized cervical portion of the left internal carotid artery. Normal origin of the left external carotid artery (ECA). VERTEBRAL ARTERIES: Normal antegrade flow within the bilateral vertebral artery without a hemodynamically significant stenosis. AORTIC ARCH: Normal aortic arch and origins of the great vessels. MRI/MRA Neck WITH and W/O Contrast IMPRESSION: 1. Normal bilateral cervical carotid and vertebral arteries. 2. Normal aortic arch and origins of the great vessels. 3. No interval change when compared to CTA neck of 06/25/2024. Electronically Signed: Wesley Gifford MD at 15:01 EDT ,
--- NOTE | 2024-06-25 10:41 | MRI_ITS ---
EXAM: MR HEAD WITHOUT AND WITH INTRAVENOUS CONTRAST CLINICAL INDICATION: CVA -- with contrast per Neurology TECHNIQUE: Multiplanar and multisequence MR images of the brain were obtained without and with intravenous contrast. CONTRAST: 14 mL of IV Clariscan. COMPARISON: CT head without contrast and CTA head and neck with contrast 06/25/2024. MRI brain with and without contrast 05/01/2016. FINDINGS: BRAIN AND EXTRA-AXIAL SPACES: Abnormal diffusion restriction in the left periventricular white matter extending to the left putamen. This enhances with IV contrast. Cystic encephalomalacia and atrophy in the right middle frontal gyrus and the caudal aspect of the right central lobe. This is underneath the right-sided craniotomy. There is minimal contrast enhancement of the cortical atrophy in the right middle frontal gyrus and right central lobe. No other abnormal enhancing lesions intra-axially and extra-axially. No communicating or noncommunicating hydrocephalus. No intra- or extra-axial hemorrhage. No evidence of acute infarct. No intracranial mass or mass effect. There is preservation of the bear/white matter interface. Posterior fossa structures are unremarkable. Basal cisterns are patent. SELLA: Unremarkable. Normal sella turcica, pituitary gland, infundibular stalk, optic chiasm and hypothalamus. AUDITORY SYSTEM: Unremarkable. The internal auditory canals are patent. BONES/JOINTS: Unremarkable. No discrete lytic or blastic abnormalities. SINUSES: Unremarkable as visualized. Clear. MASTOID AIR CELLS: Unremarkable as visualized. Clear. ORBITS: Unremarkable as visualized. Both globes, extraocular muscles, optic nerves and retrobulbar fat appear unremarkable. VASCULATURE: Unremarkable as visualized. Normal flow voids in the major intracranial circulation. MRI/Brain W/WO Contrast IMPRESSION: 1. Prominent enhancing subacute ischemic infarct in the left periventricular white matter extending to the left putamen. 2. Minimal enhancement in the cortex of the postoperative cystic encephalomalacia and atrophy in the right middle frontal gyrus and right precentral gyrus. This is underneath the right-sided craniotomy. 3. No other enhancing lesions intra-axially and extra-axially. Electronically Signed: Wesley Gifford MD at 15:07 EDT ,
[2024-06-25] MEDS: Aspirin 81 MG TAB.CHEW PO (11:15)
[2024-06-25] MEDS: Enoxaparin 40 MG/0.4 ML Syringe SC (11:15)
[2024-06-25] MEDS: Clopidogrel Bisulfate 75 MG Tablet PO (11:15)
[2024-06-25] MEDS: Lacosamide 100 MG Tablet 150 MG PO ×2 (11:19→21:13)
--- NOTE | 2024-06-25 12:37 | CASEMGMT ---
Met with pt to complete CAN form. CAN form explained to pt at this time who voiced understanding and signed form. Original form placed in pt?s chart and copy provided to the pt. Pt states that he is ind and that he lives with his . Pt states that he runs 10 miles 3 to 4 times per week and denies further concerns moving forward. Myles Jensen RN CM
--- NOTE | 2024-06-25 13:17 | CASEMGMT ---
Social Work Pt completed PHQ-9 w/SW. Pt scored a 4, pt is feeling tired or having little energy most days, and pt also has been moving more slowly most days over the last two weeks. Pt attributes these symptoms to what is going on medically. Pt states was able to run a couple of days this week and other than that has had little energy. Mental health resources not indicated at this time, as pt attributing symptoms to medical issues. MARC Crockett
--- NOTE | 2024-06-25 16:43 | PN.HOSP_ITS ---
Subjective Subjective Still has a little bit of trouble with word finding today. Objective Data Objective Data Vital Signs: Vital Signs Temp Pulse Resp BP Pulse Ox O2 Del Method 98.4 F 47 L 18 131/73 H 98 Room Air 06/25/24 15:54 06/25/24 15:54 06/25/24 15:54 06/25/24 15:54 06/25/24 15:54 06/25/24 15:54 Oxygen Delivery Method Room Air Weight: 156 lb 11.979 oz Body Mass Index (BMI) 22.4 Intake & Output: Intake and Output for Last 24 Hours 06/24/24 06/25/24 06/26/24 03:59 03:59 03:59 Intake Total 710 / 710 Balance 710 / 710 Lab / Micro Data 06/25/24 05:05 06/25/24 05:05 Labs: Laboratory Results - last 24 hr 06/24/24 14:40: WBC 8.6, RBC 4.81, Hgb 15.5, Hct 45.2, MCV 94.0, MCH 32.2 H, MCHC 34.3, RDW Std Deviation 42.3, RDW Coeff of Dom 12.1, Plt Count 229, MPV 10.9, Immature Gran % (Auto) 0.500, Neut % (Auto) 70.4 H, Lymph % (Auto) 20.2, [place] % (Auto) 7.3, Eos % (Auto) 0.8, Baso % (Auto) 0.8, Absolute Neuts (auto) 6.0, Absolute Lymphs (auto) 1.73, Nucleated RBC % 0, PT 14.7, INR 1.2, APTT 29.4, Sodium 139, Potassium 3.7, Chloride 105, Carbon Dioxide 30.0, Anion Gap 4 L, BUN 20 H, Creatinine 1.30, Estim Creat Clear Calc 56.93, Est GFR (MDRD) Af Amer 71, Est GFR (MDRD) Non-Af 58 L, BUN/Creatinine Ratio 15.4, Glucose 101, Calcium 9.5, Total Bilirubin 0.60, AST 27, ALT 22, Alkaline Phosphatase 72, Total Protein 7.7, Albumin 4.1, Globulin 3.6, Albumin/Globulin Ratio 1.1 06/24/24 16:48: POC Glucose 86 06/24/24 18:25: Urine Color Yellow, Urine Clarity Cloudy, Urine pH 6.0, Ur Specific [place] 1.020, Urine Protein 30 H, Urine Glucose (UA) Normal, Urine Ketones 5 H, Urine Occult Blood Negative, Urine Nitrite Negative, Urine Bilirubin Negative, Urine Urobilinogen Normal, Ur Leukocyte Esterase 100 H, Urine RBC 0 SEEN, Urine WBC 5-10 SEEN, Ur Squamous Epith Cells 0 SEEN, Triple Phos Crystals 4+, Urine Bacteria 2+, Hyaline Casts 0-5 SEEN, Urine Mucus 1+, Urine Opiates Screen NEGATIVE, Urine Methadone Screen NEGATIVE, Ur Barbiturates Screen NEGATIVE, Ur Phencyclidine Scrn NEGATIVE, Ur Amphetamines Screen NEGATIVE, MDMA (Ecstasy) Screen NEGATIVE, U Benzodiazepines Scrn NEGATIVE, Urine Cocaine Screen NEGATIVE, U Cannabinoids Screen NEGATIVE, Ur Drug Screen Comment 06/25/24 05:05: WBC 6.9, RBC 4.63, Hgb 14.9, Hct 43.9, MCV 94.8 H, MCH 32.2 H, MCHC 33.9, RDW Std Deviation 42.1, RDW Coeff of Dom 12.1, Plt Count 201, MPV 10.0, Immature Gran % (Auto) 0.400, Neut % (Auto) 59.9, Lymph % (Auto) 28.6, [place] % (Auto) 8.3, Eos % (Auto) 1.6, Baso % (Auto) 1.2 H, Absolute Neuts (auto) 4.1, Absolute Lymphs (auto) 1.96, Nucleated RBC % 0, Sodium 141, Potassium 3.9, Chloride 108 H, Carbon Dioxide 29.0, Anion Gap 4 L, BUN 17, Creatinine 1.18, Estim Creat Clear Calc 61.09, Est GFR (MDRD) Af Amer 79, Est GFR (MDRD) Non-Af 65, BUN/Creatinine Ratio 14.4, Glucose 90, Hemoglobin A1c 5.5, Calcium 9.2, Magnesium 2.5, Triglycerides 76, Cholesterol 174, LDL Cholesterol 107, VLDL Cholesterol 15, HDL Cholesterol 52, TSH 6.320 H Radiography Diagnostic Testing: Radiology Impression Echocardiogram 06/24/24 18:45 Interpretation Summary The estimated ejection fraction is 55 %. No evidence for diastolic dysfunction. Trivial mitral valve insufficiency. Trivial aortic valve insufficiency. Ordering Physician: Iris Moreno Referring Physician: Marisol Redman Performed By: Ene Sahni, SUMMERCS, RVT Head/Neck CTA 06/25/24 08:00 IMPRESSION: 1. No CTA evidence any suspicious large vessel occlusion or medium vessel occlusion of the anterior and posterior intracranial circulation. 2. Normal bilateral cervical carotids and vertebral arteries. 3. Normal aortic arch and origins of the great vessels. 4. Small benign reactive nodes in the suprahyoid neck and infrahyoid neck. 5. No CT evidence of mass or cyst in the suprahyoid neck and infrahyoid neck. 6. No significant interval change when compared to MRA head and neck of 05/01/2016. Electronically Signed: Wesley Gifford MD at 14:08 EDT , ADDENDUM: 06/25/24 1418 IMPRESSION: 1. No CTA evidence any suspicious large vessel occlusion or medium vessel occlusion of the anterior and posterior intracranial circulation. 2. Normal bilateral cervical carotids and vertebral arteries. 3. Normal aortic arch and origins of the great vessels. 4. Small benign reactive nodes in the suprahyoid neck and infrahyoid neck. 5. No CT evidence of mass or cyst in the suprahyoid neck and infrahyoid neck. 6. No significant interval change when compared to MRA head and neck of 05/01/2016. N.B. : The above Results were Read Back by Wesley Gifford MD to Milagros Love RN, and understanding confirmed on 06/25/2024 14:12:03 (ET). Electronically Signed: Wesley Gifford MD at 14:08 EDT , Brain MRI 06/25/24 10:41 IMPRESSION: 1. Prominent enhancing subacute ischemic infarct in the left periventricular white matter extending to the left putamen. 2. Minimal enhancement in the cortex of the postoperative cystic encephalomalacia and atrophy in the right middle frontal gyrus and right precentral gyrus. This is underneath the right-sided craniotomy. 3. No other enhancing lesions intra-axially and extra-axially. Electronically Signed: Wesley Gifford MD at 15:07 EDT , Head MRA 06/25/24 10:41 IMPRESSION: Normal MRA of the head and unchanged when compared to CTA head of 06/25/2024. COMMENT: Please see MRI brain showing prominent early subacute ischemic infarct in the left periventricular white matter extending to the left putamen. This is most likely cardioembolic in origin. Electronically Signed: Wesley Gifford MD at 14:59 EDT , Neck MRA 06/25/24 10:41 IMPRESSION: 1. Normal bilateral cervical carotid and vertebral arteries. 2. Normal aortic arch and origins of the great vessels. 3. No interval change when compared to CTA neck of 06/25/2024. Electronically Signed: Wesley Gifford MD at 15:01 EDT , Rhythm Strip Rhythm Strip: Sinus Rhythm Rate: 45 Ectopy: None Physical Exam Narrative General: Alert, Oriented x3, Cooperative, No apparent distress HEENT: Atraumatic, PERRLA, EOMI, Normocephalic Oral: Moist Mucosa Neck: Supple, No JVD Lungs: Clear to auscultation, Normal air movement, No rhonchi, No wheeze, No rales Cardiovascular: Regular rate, Regular Rhythm, Normal S1, Normal S2, No murmurs Abdomen: Soft, Non Tender, Non-Distended, No Hepato-splenomegaly Extremities: No edema, Capillary Refill Less than 3 Seconds Skin: No rashes, No breakdown Musculoskeletal: No Tenderness to Palpation of Joints or Extremities Neurological: No focal neurological deficits, Motor Exam 5/5 strength throughout, Sensory exam intact to light touch and pain, word finding issues Psych/Mental Status: Normal Affect, Appropriate Assessment & Plan Assessment/Plan (1) Ischemic cerebrovascular accident (CVA): PLAN: Plan 1. Left periventricular white matter extending to the putamen CVA ? Continue with aspirin, Plavix, Lipitor ? Appreciate neurology's assistance ? Continue with telemetry for another 24 hours ? MRA of the head and neck was also unremarkable, CTA was also normal ? His says that he is improving slowly but he still has some difficulties finding words 2. History of seizure disorder/history of meningioma resection ? Continue with his home medications ? His relates that about a week and a half ago to 2 weeks ago he had an episode where he had a facial droop and he was going inside to grab his seizure medications and it had resolved this may be the moment he had had the subacute stroke DVT: Darren Charges/Coding Visit Charges Inpatient E&M: 81143 Subs Hosp L2
[2024-06-25] MEDS: Atorvastatin Calcium 80 MG Tablet PO (21:07)
[2024-06-26 02:00] VITALS: BP 130/89; PULSE 46; RESP 16; TEMP 36.7; O2SAT 98
[2024-06-26 06:00] VITALS: BP 121/78; PULSE 45; RESP 16; TEMP 36.7; O2SAT 98
[2024-06-26] MEDS: Lacosamide 100 MG Tablet 150 MG PO (09:23)
[2024-06-26] MEDS: FLU VACCINE **HIGH DOSE** TV 24-25 180 MCG/0.5 ML SYRINGE IM (09:24)
[2024-06-26] MEDS: Aspirin 81 MG TAB.CHEW PO (09:25)
[2024-06-26] MEDS: Clopidogrel Bisulfate 75 MG Tablet PO (09:25)
[2024-06-26] MEDS: Enoxaparin 40 MG/0.4 ML Syringe SC (09:25)
[2024-06-26 10:00] VITALS: BP 119/81; PULSE 49; RESP 16; TEMP 36.7; O2SAT 97
--- NOTE | 2024-06-26 10:46 | DCINST_ITS ---
Discharge Instructions Diet Discharge Diet: No restrictions Activity Discharge Activity: Return to Normal Activity Dressing / Incision Call your doctor if you observe: Fever of 101 or Higher, Shortness of breath, Dizziness, Fainting spells, Swelling in the ankles, Chest pain and Increased palpitations (irregular heartbeat) Follow Up Care Test Results: Test results from this visit will be discussed in further detail at your follow- up appointment, if applicable. Discharge Plan Admission Admit Date/Time: 06/24/24 18:39 Attending Provider: Lupillo Rosas Primary Care Provider: Marisol Redman Consulting Providers: Bran Colbert; Ronnie Salas; Kelly Ybarra; Sofi Flores; Junie Richards; Coy Galdamez; Paola Quintero; Indra Ca; Jose Angel Loera; Rolly Guerrier; Kalie Cueto; Efren Kimball; Iza Oates; Vaughn Ron; Erick Agarwal; Joao Acosta; Marli Cho; Luis Enrique Bledsoe; Tona Fleming; Carolina Ingram; Iris Moreno Instructions Additional Instructions / Restrictions: Follow-up with neurology as an outpatient. Limit ibuprofen is much as possible given the addition of aspirin and Plavix as this can lead to stomach bleeding Discharge Orders/Prescriptions Prescriptions: New atorvastatin 80 mg Tablet 80 mg PO QHS 30 Days Qty: 30 0RF clopidogrel 75 mg Tablet 75 mg PO DAILY 30 Days Qty: 30 0RF aspirin 81 mg Tablet,Chewable 81 mg PO BREAKFAST 30 Days Qty: 30 0RF Continued ibuprofen 800 MG tablet 800 mg PO TID PRN (Reason: Pain) lacosamide 150 mg tablet 150 mg PO BID levetiracetam 750 mg tablet extended release 24 hr 750 mg PO BID Referrals / Follow Up: Marisol Redman MD [Primary Care Provider] - Within 1 Week Disposition Disposition (needs filled in before D/C Order can be placed): Home, Self Care
--- NOTE | 2024-06-26 10:47 | NEURO.CONS ---
Assessment and Plan: Neuro Assessment/Plan INCORRECT ENTRY HPI Consult Data Date of Consult: 06/26/24 HPI Narrative HPI Narrative: CADE PRECIADO, is a 68 M who presents PFS Home Medications ?Medication ?Instructions ?Recorded ?Last Taken ?Type ibuprofen 800 mg tablet 800 mg PO TID PRN Pain 06/24/24 Unknown History lacosamide 150 mg tablet 150 mg PO BID 06/24/24 06/24/24 History levetiracetam 750 mg 750 mg PO BID 06/24/24 06/24/24 History tablet,extended release 24 hr Allergy/AdvReac Type Severity Reaction Status Date / Time No Known Allergies Allergy Verified 06/24/24 16:20 Family History no significant family his Surgical History no surgical history Social History Smoking Status: Never smoker Vital Signs Vital Signs Vital Signs: 06/25/24 11:54 06/25/24 15:54 06/25/24 18:00 Temperature 97.2 F L 98.4 F 98.4 F Temperature Source Temporal Temporal Temporal Pulse Rate 42 L 47 L 45 L Pulse Strength Respiratory Rate 18 18 18 Respiratory Effort Respiratory Depth Respiratory Pattern Blood Pressure 117/82 H 131/73 H 130/70 H Blood Pressure Mean 93 92 90 Blood Pressure Source Monitor Monitor Monitor Blood Pressure Position Semi-Fowlers Semi-Fowlers Semi-Fowlers Blood Pressure Location Right Arm Right Arm Right Arm Pulse Ox 98 98 98 Oxygen Delivery Method Room Air Room Air Room Air 06/25/24 20:00 06/25/24 20:15 06/25/24 22:00 Temperature 98.1 F Temperature Source Oral Pulse Rate 44 L Pulse Strength Normal (2+) Respiratory Rate 16 Respiratory Effort Normal Non-Labored Respiratory Depth Normal Respiratory Pattern Normal Blood Pressure 131/85 H Blood Pressure Mean 100 Blood Pressure Source Monitor Blood Pressure Position Semi-Fowlers Blood Pressure Location Left Arm Pulse Ox 98 Oxygen Delivery Method Room Air Room Air 06/26/24 02:00 06/26/24 02:00 06/26/24 06:00 Temperature 98.1 F 98.1 F Temperature Source Oral Oral Pulse Rate 46 L 45 L Pulse Strength Respiratory Rate 16 16 Respiratory Effort Normal Non-Labored Respiratory Depth Normal Respiratory Pattern Normal Blood Pressure 130/89 H 121/78 H Blood Pressure Mean 102 92 Blood Pressure Source Monitor Monitor Blood Pressure Position Semi-Fowlers Semi-Fowlers Blood Pressure Location Right Arm Right Arm Pulse Ox 98 98 Oxygen Delivery Method Room Air Room Air Room Air 06/26/24 07:40 06/26/24 09:12 06/26/24 10:00 Temperature 98.1 F Temperature Source Temporal Pulse Rate 49 L Pulse Strength Respiratory Rate 16 Respiratory Effort Normal Non-Labored Respiratory Depth Normal Respiratory Pattern Normal Blood Pressure 119/81 H Blood Pressure Mean 93 Blood Pressure Source Monitor Blood Pressure Position Semi-Fowlers Blood Pressure Location Right Arm Pulse Ox 97 Oxygen Delivery Method Room Air Room Air Room Air Weight Weight: 71.1 kg Body Mass Index (BMI) 22.4 EEG Results Procedure Details EEG Procedure Details: CADE PRECIADO is a 68 year old M with a past medical history of , who presents for evaluation of Electroencephalogram on DATE at TIME NIHSS NIHSS Nursing Documentation NIHSS Nursing Documentation: NIHSS: Ischemic Stroke/TIA Start: 06/24/24 19:10 Text: For PCU Patients: NIH and Neuro Check every 4 Status: Active hours, PRN and with change in RN caregiver. Freq: [id number] Protocol: Activity Type Activity Date Activity User E-sign Co-sign Detail Recorded Client Recorded Date Recorded By Document 06/26/24 10:00 EMORY8 mara 06/26/24 10:07 ANGELINA 06/26/24 10:00 NIH Stroke Scale [NIHSS] A score of 0 is normal or asymptomatic . Total possible score is 42. Inpatient: RN or Physician to activate a stroke alert for onset of new stroke symptoms or with NIHSS increase >/= 3 points. Following change in neurological status, NIHSS will be performed per physician order or more frequently PRN. -1a. Level of Consciousness Alert; keenly responsive -1b. LOC Questions Answers BOTH questions correctly. -1c. LOC Commands Performs both tasks correctly . -2. Best Gaze Normal -3. Visual No visual loss -4. Facial Palsy Normal symmetrical movements -5a. Left Arm No drift; arm holds 90 (or 45 ) degrees for full 10 seconds -5b. Right Arm No drift; arm holds 90 (or 45 ) degrees for full 10 seconds -6a. Left Leg No drift; leg holds 30-degree position for full 5 seconds -6b. Right Leg No drift; leg holds 30-degree position for full 5 seconds -7. Limb Ataxia Absent -8. Sensory Normal; no sensory loss -9. Best Language No aphasia; normal -10. Dysarthria Normal -11. Extinction and Inattention No abnormality -Total 0 Query Text:A score of 0 is normal or asymptomatic. Total possible score is 42 . ED: Notify Physician for NIHSS increase by > / = 3 points. Inpatient: RN or Physician to activate a stroke alert for NIHSS increase of > / = 3 points. Coma Scale [Assess] -Eye Opening Spontaneous -Motor Obeys Commands -Verbal Oriented [Total] -Coma Scale Total 15 Lab / Micro Data 06/25/24 05:05 06/25/24 05:05 Rhythm Strip Rhythm Strip: Sinus Rhythm Rate: 45 Ectopy: None Imaging Radiology Impression Echocardiogram 06/24/24 18:45 Interpretation Summary The estimated ejection fraction is 55 %. No evidence for diastolic dysfunction. Trivial mitral valve insufficiency. Trivial aortic valve insufficiency. Ordering Physician: Iris Moreno Referring Physician: Marisol Redman Performed By: Ene Sahni, MILAGRO, RVT Head/Neck CTA 06/25/24 08:00 IMPRESSION: 1. No CTA evidence any suspicious large vessel occlusion or medium vessel occlusion of the anterior and posterior intracranial circulation. 2. Normal bilateral cervical carotids and vertebral arteries. 3. Normal aortic arch and origins of the great vessels. 4. Small benign reactive nodes in the suprahyoid neck and infrahyoid neck. 5. No CT evidence of mass or cyst in the suprahyoid neck and infrahyoid neck. 6. No significant interval change when compared to MRA head and neck of 05/01/2016. Electronically Signed: Wesley Gifford MD at 14:08 EDT , ADDENDUM: 06/25/24 1418 IMPRESSION: 1. No CTA evidence any suspicious large vessel occlusion or medium vessel occlusion of the anterior and posterior intracranial circulation. 2. Normal bilateral cervical carotids and vertebral arteries. 3. Normal aortic arch and origins of the great vessels. 4. Small benign reactive nodes in the suprahyoid neck and infrahyoid neck. 5. No CT evidence of mass or cyst in the suprahyoid neck and infrahyoid neck. 6. No significant interval change when compared to MRA head and neck of 05/01/2016. N.B. : The above Results were Read Back by Wesley Gifford MD to Milagros Love RN, and understanding confirmed on 06/25/2024 14:12:03 (ET). Electronically Signed: Wesley Gifford MD at 14:08 EDT , Brain MRI 06/25/24 10:41 IMPRESSION: 1. Prominent enhancing subacute ischemic infarct in the left periventricular white matter extending to the left putamen. 2. Minimal enhancement in the cortex of the postoperative cystic encephalomalacia and atrophy in the right middle frontal gyrus and right precentral gyrus. This is underneath the right-sided craniotomy. 3. No other enhancing lesions intra-axially and extra-axially. Electronically Signed: Wesley Gifford MD at 15:07 EDT , Head MRA 06/25/24 10:41 IMPRESSION: Normal MRA of the head and unchanged when compared to CTA head of 06/25/2024. COMMENT: Please see MRI brain showing prominent early subacute ischemic infarct in the left periventricular white matter extending to the left putamen. This is most likely cardioembolic in origin. Electronically Signed: Wesley Gifford MD at 14:59 EDT , Neck MRA 06/25/24 10:41 IMPRESSION: 1. Normal bilateral cervical carotid and vertebral arteries. 2. Normal aortic arch and origins of the great vessels. 3. No interval change when compared to CTA neck of 06/25/2024. Electronically Signed: Wesley Gifford MD at 15:01 EDT , Active Medications Active Medications Active Medications: Current Medications Generic Name Dose Route Start Last Admin Trade Name Freq PRN Reason Stop Dose Admin Acetaminophen 650 mg 06/24/24 19:10 Acetaminophen 325 Mg Tablet PO Q6H PRN PRN Pain 1-10 Or Fever >100.7 Albuterol Sulfate 2.5 mg 06/24/24 19:10 Albuterol 2.5 Mg/3 Ml Vial.Neb. INHALATION Q2H PRN PRN SOB &/OR WHEEZING Aspirin 81 mg 06/25/24 08:00 06/26/24 09:25 Aspirin 81 Mg Tab.Chew PO 81 mg BREAKFAST CHAN Administration Atorvastatin Calcium 80 mg 06/24/24 22:00 06/25/24 21:07 Atorvastatin Calcium 80 Mg Tablet PO 80 mg QHS CHAN Administration Clopidogrel Bisulfate 75 mg 06/24/24 19:10 06/26/24 09:25 Clopidogrel Bisulfate 75 Mg Tablet PO 75 mg DAILY CHAN Administration Enoxaparin Sodium 40 mg 06/25/24 10:00 06/26/24 09:25 Enoxaparin 40 Mg/0.4 Ml Syringe SC 40 mg DAILY CHAN Administration Lacosamide 150 mg 06/24/24 22:00 06/26/24 09:23 Lacosamide 100 Mg Tablet PO 150 mg BID CHAN Administration Levetiracetam 750 mg 06/25/24 22:00 06/26/24 09:25 Levetiracetam 750 Mg Tab.Er.24h PO 750 mg BID CHAN Administration Melatonin 3 mg 06/24/24 19:10 Melatonin 3 Mg Tablet PO QHS PRN PRN INSOMNIA Ondansetron HCl 4 mg 06/24/24 19:10 Ondansetron 4 Mg/2 Ml Vial IV Q8H PRN PRN NAUSEA/VOMITING Senna/Docusate Sodium 2 tablet 06/24/24 19:10 Senna/Docusate Sodium 1 Tablet PO BID PRN PRN Constipation Sodium Chloride 10 - 40 ml 06/24/24 19:59 0.9% Saline Lock 10 Ml Syringe IV UD PRN SALINE FLUSH
--- NOTE | 2024-06-26 10:48 | NEURO.PNOTE ---
Assessment and Plan: Neuro Assessment/Plan CADE PRECIADO, is a 68 M w/ hx of right frontal parietal meningioma s/p resection and radiation and structural [facility] who presents with a week of confusion. Patient states he feels overall okay and was barbara in by his who has concerns about his speech and abnormal imaging. Per chart review he had a week of confusion and PCP ordered a CTH which showed a large subacute subcortical ischemic stroke involving left morales radiata and basal ganglia. Given the symptoms and finding he came to the ED. A1c5.5, LDL 107. His examine is unremarkable. Presentation is secondary to ischemic stroke, MRI brain shows a large subcortical left hemispheric stroke acute, cryptogenic in etiology, MRA H/N and TTE neg. Will need an event monitor at hi. Diagnosis: - Ischemic stroke Plan: - ASA 81 mg - Lipitor 80 - 30d event monitor - CV risk factor optimization - No other recs. Neuro to sign off. Follow up [facility] PCP and neurology outpatient. Please reachout for any questions or concerns. I personally attended this patient and spent a total time of 30 minutes evaluating this patient including clinical assessment, review of chart, medical history imaging, and determining appropriate treatment and workup. Subject: Neurology Subjective CADE PRECIADO, is a 68 M w/ hx of right frontal parietal meningioma s/p [facility] and [facility] and [facility] who presents with a week of confusion. Patient states he feels overall okay and was barbara in by his who has concerns about his speech and abnormal imaging. Per chart review he had a week of confusion and PCP ordered a CTH which showed a large subacute subcortical ischemic stroke involving left morales radiata and basal ganglia. Given the symptoms and finding he came to the ED. A1c5.5, LDL 107. His examine is unremarkable. Presentation is secondary to ischemic stroke, MRI brain shows a large subcortical left hemispheric stroke acute, cryptogenic in etiology, MRA H/N and TTE neg. Will need an event monitor at hi. NIHSS NIHSS Nursing Documentation NIHSS Nursing Documentation: NIHSS: Ischemic Stroke/TIA Start: 06/24/24 19:10 Text: For PCU Patients: NIH and Neuro Check every 4 Status: Active hours, PRN and with change in RN caregiver. Freq: [id number] Protocol: Activity Type Activity Date Activity User E-sign Co-sign Detail Recorded Client Recorded Date Recorded By Document 06/26/24 10:00 JM8 sdes 06/26/24 10:07 JM8 06/26/24 10:00 NIH Stroke Scale [NIHSS] A score of 0 is normal or asymptomatic . Total possible score is 42. Inpatient: RN or Physician to activate a stroke alert for onset of new stroke symptoms or with NIHSS increase >/= 3 points. Following change in neurological status, NIHSS will be performed per physician order or more frequently PRN. -1a. Level of Consciousness Alert; keenly responsive -1b. LOC Questions Answers BOTH questions correctly. -1c. LOC Commands Performs both tasks correctly . -2. Best Gaze Normal -3. Visual No visual loss -4. Facial Palsy Normal symmetrical movements -5a. Left Arm No drift; arm holds 90 (or 45 ) degrees for full 10 seconds -5b. Right Arm No drift; arm holds 90 (or 45 ) degrees for full 10 seconds -6a. Left Leg No drift; leg holds 30-degree position for full 5 seconds -6b. Right Leg No drift; leg holds 30-degree position for full 5 seconds -7. Limb Ataxia Absent -8. Sensory Normal; no sensory loss -9. Best Language No aphasia; normal -10. Dysarthria Normal -11. Extinction and Inattention No abnormality -Total 0 Query Text:A score of 0 is normal or asymptomatic. Total possible score is 42 . ED: Notify Physician for NIHSS increase by > / = 3 points. Inpatient: RN or Physician to activate a stroke alert for NIHSS increase of > / = 3 points. Coma Scale [Assess] -Eye Opening Spontaneous -Motor Obeys Commands -Verbal Oriented [Total] -Coma Scale Total 15 Objective Data Objective Data Vital Signs: Vital Signs Temp Pulse Resp BP Pulse Ox O2 Del Method 98.1 F 49 L 16 119/81 H 97 Room Air 06/26/24 10:00 06/26/24 10:00 06/26/24 10:06/26/24 10:00 06/26/24 10:06/26/24 10:00 Oxygen Delivery Method Room Air Weight: 71.1 kg Body Mass Index (BMI) 22.4 Intake & Output: Intake and Output for Last 24 Hours 06/24/24 06/25/24 06/26/24 23:59 23:59 23:59 Intake Total 710 / 710 Balance 710 / 710 Lab / Micro Data 06/25/24 05:05 06/25/24 05:05 Radiography Diagnostic Testing: Radiology Impression Echocardiogram 06/24/24 18:45 Interpretation Summary The estimated ejection fraction is 55 %. No evidence for diastolic dysfunction. Trivial mitral valve insufficiency. Trivial aortic valve insufficiency. Ordering Physician: Iris Moreno Referring Physician: Marisol Redman Performed By: Ene Sahni, MILAGRO, RVT Head/Neck CTA 06/25/24 08:00 IMPRESSION: 1. No CTA evidence any suspicious large vessel occlusion or medium vessel occlusion of the anterior and posterior intracranial circulation. 2. Normal bilateral cervical carotids and vertebral arteries. 3. Normal aortic arch and origins of the great vessels. 4. Small benign reactive nodes in the suprahyoid neck and infrahyoid neck. 5. No CT evidence of mass or cyst in the suprahyoid neck and infrahyoid neck. 6. No significant interval change when compared to MRA head and neck of 05/01/2016. Electronically Signed: Wesley Gifford MD at 14:08 EDT , ADDENDUM: 06/25/24 1255 IMPRESSION: 1. No CTA evidence any suspicious large vessel occlusion or medium vessel occlusion of the anterior and posterior intracranial circulation. 2. Normal bilateral cervical carotids and vertebral arteries. 3. Normal aortic arch and origins of the great vessels. 4. Small benign reactive nodes in the suprahyoid neck and infrahyoid neck. 5. No CT evidence of mass or cyst in the suprahyoid neck and infrahyoid neck. 6. No significant interval change when compared to MRA head and neck of 05/01/2016. N.B. : The above Results were Read Back by Wesley Gifford MD to Milagros Love RN, and understanding confirmed on 06/25/2024 14:12:03 (ET). Electronically Signed: Wesley Gifford MD at 14:08 EDT , Brain MRI 06/25/24 10:41 IMPRESSION: 1. Prominent enhancing subacute ischemic infarct in the left periventricular white matter extending to the left putamen. 2. Minimal enhancement in the cortex of the postoperative cystic encephalomalacia and atrophy in the right middle frontal gyrus and right precentral gyrus. This is underneath the right-sided craniotomy. 3. No other enhancing lesions intra-axially and extra-axially. Electronically Signed: Wesley Gifford MD at 15:07 EDT , Head MRA 06/25/24 10:41 IMPRESSION: Normal MRA of the head and unchanged when compared to CTA head of 06/25/2024. COMMENT: Please see MRI brain showing prominent early subacute ischemic infarct in the left periventricular white matter extending to the left putamen. This is most likely cardioembolic in origin. Electronically Signed: Wesley Gifford MD at 14:59 EDT , Neck MRA 06/25/24 10:41 IMPRESSION: 1. Normal bilateral cervical carotid and vertebral arteries. 2. Normal aortic arch and origins of the great vessels. 3. No interval change when compared to CTA neck of 06/25/2024. Electronically Signed: Wesley Gifford MD at 15:01 EDT , Rhythm Strip Rhythm Strip: Sinus Rhythm Rate: 45 Ectopy: None Physical Exam Narrative Physical Exam: - General: NAD, pleasant, cooperative, well nourished, well developed - Head/Eyes: Atraumatic, normocephalic, clear cornea, normal sclera/conjunctive - Neuro: ? Mental Status: AAOX4 & following simple commands. ? Speech: Clear and fluent with good repetition, comprehension, & naming. No aphasia or dysarthria ? CN II: Visual jasso are full to confrontation. PERRL. ? CN III, IV, : EOMI, no gaze preference, no nystagmus, no ptosis ? CN V: Facial sensation is intact to light touch throughout. ? CN VII: Face is symmetric with normal eye closure and smile. ? CN VII: Hearing is grossly normal to conversational speech. ? CN IX, X: Palate elevates symmetrically and no uvula deviation ? CN XI: Head turning, and shoulder shrug are intact. ? CN XII: Tongue is midline with normal movements and no atrophy. ? Motor: Able to sustain all limbs ? Sensation: Normal to light touch bilaterally. ? Coordination: Normal FTN & HTS. No abn movements seen.
[2024-06-26 12:04] VITALS: BP 119/81; PULSE 49; RESP 16; TEMP 36.7; O2SAT 97
--- NOTE | 2024-06-26 12:42 | PCM.DC.SUM ---
Providers Date of Admission: 06/24/24 Primary Care Physician: Dr. Marisol Redman MD Consultations 06/24/24 19:10 Consult: Tele-Neurology Routine Consulting Provider: [facility] Reason for Consult: Subacute Ischemic Stroke EMERGENT Consult: No MD Notified: Yes Date Notified: 06/24/24 Time Notified: 21:32 Method of Notification: Answering Service Nursing Unit Staff Notify [facility] of Tele-Neurology Consult: Yes Reason For Visit: NEW CVA Diagnosis Discharge Diagnosis (1) Ischemic cerebrovascular accident (CVA): Status: Acute Code(s): I63.9 - Cerebral infarction, unspecified Medications at Discharge Home Medications ibuprofen 800 mg tablet 800 mg PO TID PRN Pain 06/24/24 lacosamide 150 mg tablet 150 mg PO BID 06/24/24 levetiracetam 750 mg tablet,extended release 24 hr 750 mg PO BID 06/24/24 aspirin 81 mg chewable tablet 81 mg PO BREAKFAST 30 days #30 tabs 06/26/24 atorvastatin 80 mg tablet 80 mg PO QHS 30 days #30 tabs 06/26/24 clopidogrel 75 mg tablet 75 mg PO DAILY 30 days #30 tabs 06/26/24 Hospital Course Operations None Procedures 2-D Echocardiogram Summary of Care Provided Minutes Spent on Discharge: 36 Hospital Course: Per HPI: CADE PRECIADO, is a 68 M with a history of meningioma status post removal and seizure disorder on antiepileptics who presented to [facility] ED at the urging of his primary care physician due to suspected subacute stroke found on CT. Hospitalist contacted for admission to expedite further workup. Patient has had roughly 6 days of being off with some word finding difficulty, indecisiveness, and just not feeling/acting like himself that was noticed by multiple family members. Has been roughly the same throughout the week with no notable improvement or worsening. Patient had CT ordered by PCP and it demonstrated a new low-attenuation focus within the left basal ganglia concerning for subacute infarct and recommended MRI for further evaluation. Patient denies any fevers or chills, no numbness, weakness, tingling. Does feel like swallowing has maybe been a little bit different for him but he has been able to swallow, just feels different from baseline but cannot describe that further. No slurred speech or changes in vision. ROS otherwise negative Hospital Course: 1. Left periventricular white matter extending to the putamen CVA ? Continue with aspirin, Plavix, Lipitor ? Appreciate neurology's assistance ? Continue with telemetry for another 24 hours ? MRA of the head and neck was also unremarkable, CTA was also normal ? His says that he is improving slowly but he still has some difficulties finding words ? I discussed with him the plan for discharge today and he expressed understanding of the risk benefits of going home and would like to go home today. Will discharge him with a 30-day event monitor to evaluate for the possibility of A-fib though he has been sinus melquiades since admission. Will continue with dual antiplatelets for the next 3 weeks and recommend outpatient neurology follow-up. 2. History of seizure disorder/history of meningioma resection ? Continue with his home medications ? His relates that about a week and a half ago to 2 weeks ago he had an episode where he had a facial droop and he was going inside to grab his seizure medications and it had resolved this may be the moment he had had the subacute stroke Physical Exam Narrative General: Alert, Oriented x3, Cooperative, No apparent distress HEENT: Atraumatic, PERRLA, EOMI, Normocephalic Oral: Moist Mucosa Neck: Supple, No JVD Lungs: Clear to auscultation, Normal air movement, No rhonchi, No wheeze, No rales Cardiovascular: Regular rate, Regular Rhythm, Normal S1, Normal S2, No murmurs Abdomen: Soft, Non Tender, Non-Distended, No Hepato-splenomegaly Extremities: No edema, Capillary Refill Less than 3 Seconds Skin: No rashes, No breakdown Musculoskeletal: No Tenderness to Palpation of Joints or Extremities Neurological: No focal neurological deficits, Motor Exam 5/5 strength throughout, Sensory exam intact to light touch and pain Psych/Mental Status: Normal Affect, Appropriate Weight / BMI Weight Weight: 156 lb 11.979 oz Body Mass Index (BMI) 22.4 ABG / Lab / Microbiology Data 06/25/24 05:05 06/25/24 05:05 Radiography Diagnostic Testing: Radiology Impression Head/Neck CTA 06/25/24 08:00 IMPRESSION: 1. No CTA evidence any suspicious large vessel occlusion or medium vessel occlusion of the anterior and posterior intracranial circulation. 2. Normal bilateral cervical carotids and vertebral arteries. 3. Normal aortic arch and origins of the great vessels. 4. Small benign reactive nodes in the suprahyoid neck and infrahyoid neck. 5. No CT evidence of mass or cyst in the suprahyoid neck and infrahyoid neck. 6. No significant interval change when compared to MRA head and neck of 05/01/2016. Electronically Signed: Wesley Gifford MD at 14:08 EDT , ADDENDUM: 06/25/24 1418 IMPRESSION: 1. No CTA evidence any suspicious large vessel occlusion or medium vessel occlusion of the anterior and posterior intracranial circulation. 2. Normal bilateral cervical carotids and vertebral arteries. 3. Normal aortic arch and origins of the great vessels. 4. Small benign reactive nodes in the suprahyoid neck and infrahyoid neck. 5. No CT evidence of mass or cyst in the suprahyoid neck and infrahyoid neck. 6. No significant interval change when compared to MRA head and neck of 05/01/2016. N.B. : The above Results were Read Back by Wesley Gifford MD to Milagros Love RN, and understanding confirmed on 06/25/2024 14:12:03 (ET). Electronically Signed: Wesley Gifford MD at 14:08 EDT , Brain MRI 06/25/24 10:41 IMPRESSION: 1. Prominent enhancing subacute ischemic infarct in the left periventricular white matter extending to the left putamen. 2. Minimal enhancement in the cortex of the postoperative cystic encephalomalacia and atrophy in the right middle frontal gyrus and right precentral gyrus. This is underneath the right-sided craniotomy. 3. No other enhancing lesions intra-axially and extra-axially. Electronically Signed: Wesley Gifford MD at 15:07 EDT , Head MRA 06/25/24 10:41 IMPRESSION: Normal MRA of the head and unchanged when compared to CTA head of 06/25/2024. COMMENT: Please see MRI brain showing prominent early subacute ischemic infarct in the left periventricular white matter extending to the left putamen. This is most likely cardioembolic in origin. Electronically Signed: Wesley Gifford MD at 14:59 EDT , Neck MRA 06/25/24 10:41 IMPRESSION: 1. Normal bilateral cervical carotid and vertebral arteries. 2. Normal aortic arch and origins of the great vessels. 3. No interval change when compared to CTA neck of 06/25/2024. Electronically Signed: Wesley Gifford MD at 15:01 EDT , D/C Instructions Discharge Diet: No restrictions Call your doctor if you observe: Fever of 101 or Higher, Shortness of breath, Dizziness, Fainting spells, Swelling in the ankles, Chest pain and Increased palpitations (irregular heartbeat) Meaningful Use Info Meaningful Use Meaningful Use Diagnoses (Choose all that apply): None applicable Ischemic Stroke Statin Dosing Therapy Reference: STATIN DOSE THERAPY REFERENCE: * Patients > 75 years receive moderate or high dose statin therapy. * Patients 75 years or YOUNGER should receive HIGH intensity statin dose unless contraindicated. You will be required to document reason for non-treatment if statin daily dose does not meet guidelines. HIGH DOSE STATIN THERAPY DAILY Atorvastatin > than or = to 40 mg Rosuvastatin > than or = to 20 mg Amlodipine + Atorvastatin > than or = to 2.5/40 mg Ezetimibe + Simvastatin 10/80 mg Simvastatin 80mg Discharge Plan Admission Admit Date/Time: 06/24/24 18:39 Attending Provider: Lupillo Rosas Primary Care Provider: Marisol Redman Consulting Providers: Bran Colbert; Ronnie Salas; Kelly Ybarra; Sofi Flores; Junie Richards; Coy Galdamez; Paola Quintero; Indra Ca; Jose Angel Loera; Rolly Guerrier; Kalie Cueto; Efren Kimball; Iza Oates; Vaughn Ron; Erick Agarwal; Joao Acosta; Marli Cho; Luis Enrique Bledsoe; Tona Fleming; Carolina Ingram; Iris Moreno Instructions Additional Instructions / Restrictions: Follow-up with neurology as an outpatient. Limit ibuprofen is much as possible given the addition of aspirin and Plavix as this can lead to stomach bleeding. Also follow-up with your PCP as an outpatient, your TSH was little bit elevated would like this to be repeated in 4 to 6 weeks and if it continues to be elevated to have further evaluation workup as an outpatient. Discharge Orders/Prescriptions Prescriptions: New atorvastatin 80 mg Tablet 80 mg PO QHS 30 Days Qty: 30 0RF clopidogrel 75 mg Tablet 75 mg PO DAILY 30 Days Qty: 30 0RF aspirin 81 mg Tablet,Chewable 81 mg PO BREAKFAST 30 Days Qty: 30 0RF Continued ibuprofen 800 MG tablet 800 mg PO TID PRN (Reason: Pain) lacosamide 150 mg tablet 150 mg PO BID levetiracetam 750 mg tablet extended release 24 hr 750 mg PO BID Other Ambulatory Orders: 30 Day Event Recorder Preventi (Routine) Timeframe: 1 Day Facility: [facility] - Location: Cardiovascular Services Ordered By: Dr. Lupillo Rosas Referrals / Follow Up: Marisol Redman MD [Primary Care Provider] - Within 1 Week Disposition Disposition (needs filled in before D/C Order can be placed): Home, Self Care Charges/Coding Visit Charges Inpatient E&M: 95778 Disch Hosp >30min
== END 2024-06-26 10:49 | disposition home or self-care (01) ==
LOC: ED 17:50 → PCU 19:04
PROVIDERS: Admitting Provider Internal Medicine; Emergency Provider Emergency Medicine; PCP Family Medicine; Visit Provider Family Medicine
DX: I63.9 Cerebral infarction, unspecified (principal); F29 Unspecified psychosis not due to a substance or known physiological condition; G40.909 Epilepsy, unspecified, not intractable, without status epilepticus; F68.8 Other specified disorders of adult personality and behavior; R00.1 Bradycardia, unspecified; G93.89 Other specified disorders of brain; R94.02 Abnormal brain scan; Z79.899 Other long term (current) drug therapy; Z86.011 Personal history of benign neoplasm of the brain; R47.89 Other speech disturbances; Z23 Encounter for immunization
CPT/HCPCS: 36415; 70470; 70496; 70498; 70544; 70549; 70553; 80048; 80053; 80061; 80307; 81001; 82962; 83036; 83735; 84443; 85025; 85610; 85730; 87086; 90662; 92523; 92610; 93005; 93306; 94762; 96372; 97129; 97802; 99221; 99285; A9575; J7030; Q9967; A4216; G0378

== ENCOUNTER → 2024-06-24 | Outpatient (CLI) | payer MEDICARE, SELFPAY ==
--- NOTE | 2024-06-24 14:43 | CT_ITS ---
INDICATION: mental changes, history of meningioma, STAT, call results EXAMINATION: CT BRAIN WITH AND WITHOUT CONTRAST - CT Head or Brain WO/W Contrast Injection TECHNIQUE: Multiple axial images were obtained of the brain with and without IV contrast. The protocol utilizes one or more of the following dose reduction techniques: automated exposure control, adjustment of mA and/or kV according to patient size,and/or use of iterative reconstruction technique. IV Contrast dosage and agent: 50 mL of Isovue-370 RADIATION DOSAGE (If Supplied By Facility): CTDIvol = ( 44.99 ) mGy, DLP = ( 1786.26 ) mGycm COMPARISON: CT dated March 31, 2016 MRI dated May 01, 2016 FINDINGS: BRAIN PARENCHYMA: No intra- or extra-axial hemorrhage. There is encephalomalacia within the right frontal lobe. There is a new focus of low attenuation within the left basal ganglia. No intracranial mass or mass effect. There is preservation of the bear/white matter interface. Posterior fossa structures are unremarkable. No abnormal contrast enhancement. CSF SPACES: Appropriate for age. No hydrocephalus. Basal cisterns are patent. CALVARIUM, SKULL BASE, PARANASAL SINUSES AND MASTOID AIR CELLS: Clear. There are postsurgical changes of the right frontal calvarium. ORBITS: Both globes, extraocular muscles, optic nerves and retrobulbar fat appear unremarkable. ASPECTS Score for Acute Strokes: 10 CT/Brain/Head W/WO Contrast IMPRESSION: New low-attenuation focus within the left basal ganglia concerning for a subacute infarct, recommend an MRI for further evaluation. Right frontal lobe encephalomalacia, possibly postsurgical in nature. Electronically Signed: Ronda Lee MD at 15:38 EDT ,
== END | disposition home or self-care (01) ==
LOC: CT 14:35
PROVIDERS: PCP Family Medicine; Referring Provider Family Medicine; Visit Provider Family Medicine
DX: F29 Unspecified psychosis not due to a substance or known physiological condition (principal)
CPT/HCPCS: 70470; Q9967

== ENCOUNTER → 2024-09-13 | Outpatient (CLI) | payer MEDICARE, SELFPAY ==
[2024-09-13 19:13] LABS: Cholesterol 106 mg/dL (200); High Density Lipoprotein 47 mg/dL; Triglycerides 102 mg/dL; Very Low Density Lipoprotein 20 mg/dL (5-40)
== END | disposition home or self-care (01) ==
LOC: MFPLAB 16:28
PROVIDERS: PCP Family Medicine; Visit Provider Family Medicine
DX: I63.9 Cerebral infarction, unspecified (principal); E03.9 Hypothyroidism, unspecified
CPT/HCPCS: 36415; 80061; 84443

== ENCOUNTER → 2025-05-31 | Outpatient (CLI) | payer MEDICARE, SELFPAY ==
[2025-05-31 13:13] LABS: PSA,Total - Annual Screen 2.25 ng/mL (0.02-4.00)
== END | disposition home or self-care (01) ==
LOC: LAB.FUTURE 05-29 09:31 → MFPLAB 09:49
DX: Z12.5 Encounter for screening for malignant neoplasm of prostate (principal)
CPT/HCPCS: 36415; 84153; G0103